=== PATIENT | male | born 1960 | race Caucasian/White ===

== ENCOUNTER 2020-12-03 07:34 | Outpatient (REF) | payer OTHER, SELFPAY ==
[2020-12-03 11:14] LABS: MANUAL DIFF FLAG NO
[2020-12-03 11:26] LABS: Basophils Percent Auto 0.4 % (0-2); Eosinophils Absolute Auto 0.3 X10*3/uL (0.0-0.4); Hematocrit 48.6 % (42-52); Imm Gran Abs Auto 0.02 X10*3/uL (0.00-0.03); Imm Gran Pct Auto 0.2 % (0.0-0.4); Immature Retic Fraction 9.2 % (2.3-13.4); Lymphocytes Absolute Auto 2.4 X10*3/uL (1.2-4.9); Lymphocytes Percent Auto 26.7 % (20-40); Mean Corpuscular Hemoglobin 31.3 pg (27.0-33.0); Mean Corpuscular Volume 89.5 fL (80-98); Mean Platelet Volume 10.8 fL (9.4-12.4); Monocytes Absolute Auto 0.7 X10*3/uL (0.1-1.2); Monocytes Percent Auto 7.3 % (2-11); Neutrophils Absolute Auto 5.6 X10*3/uL (2.0-8.3); Neutrophils Percent Auto 62.4 % (45-73); Platelet Count 213 X10*3/uL (160-400); Red Blood Count 5.43 X10*6/uL (4.60-5.80); Retic HGB Equivalent 35.8 pg (30.0-35.0); Reticulocyte Percent 2.8 % (0.5-1.8); Reticulocytes Absolute 0.154 X10*6/uL (0.026-0.095)
[2020-12-03 11:57] LABS: Alanine Aminotransferase 43 U/L (0-40); Albumin Level 4.7 g/dL (3.5-5.0); Alkaline Phosphatase 74 U/L (39-117); Anion Gap 15 (12-20); Aspartate Amino Transferase 36 U/L (5-37); Bilirubin Total 1.1 mg/dL (0.0-1.0); Blood Urea Nitrogen 15 mg/dL (9-16); Calcium 9.3 mg/dL (8.4-10.2); Carbon Dioxide 35 mmol/L (22-29); Chloride 95 mmol/L (96-108); Cholesterol 170 mg/dL; Estimated Glomerular Filt Rate > 60; Glucose Random 192 mg/dL (60-115); HDL Cholesterol 41 mg/dL; Iron 91 mcg/dL (45-160); LDL Cholesterol Calculated 75 mg/dl; Percent Iron Saturation 31 % (15-50); Potassium 3.5 mmol/L (3.3-5.1); Sodium 141 mmol/L (135-145); Total Iron Binding Capacity 290 mcg/dL (228-428); Total Protein 7.8 g/dL (6.5-8.0); Triglycerides 272 mg/dL; Unsaturated Iron Binding 199 ug/dL
[2020-12-03 12:04] LABS: Ferritin 319 ng/mL (20-250); Free T4 (Free Thyroxine) 1.07 ng/dL (0.71-1.85); Thyroid Stimulating Hormone 1.56 uIU/mL (0.32-4.0)
[2020-12-06 15:04] LABS: Folate 18.2 ng/mL (> or = 4.0); Vitamin B12 567 pg/mL (200-900)
== END 2020-12-03 07:35 | disposition home or self-care (01) ==
LOC: HO.HMGCLDS 07:34
PROVIDERS: PCP Internal Medicine; Visit Provider Internal Medicine
DX: I10 Essential (primary) hypertension (principal); E78.00 Pure hypercholesterolemia, unspecified; K21.9 Gastro-esophageal reflux disease without esophagitis; N40.1 Benign prostatic hyperplasia with lower urinary tract symptoms; R35.0 Frequency of micturition; Z12.5 Encounter for screening for malignant neoplasm of prostate
CPT/HCPCS: 36415; 80053; 80061; 82607; 82728; 82746; 83540; 84153; 84439; 84443; 84550; 85025; 85045

== ENCOUNTER 2022-01-27 07:27 | Day surgery (SDC) | payer OTHER, SELFPAY ==
--- NOTE | 2022-01-26 08:40 | P.CONAN_ITS ---
Documented by User: Olivia Charles NP 01/26/22 08:40 HPI - Anesthesia Eval Consult details Narrative: 61yo M for Colonoscopy with antibiotics [facility] Active Problems Active Problems: All Active Problems (Updated 01/24/22 @ 12:09 by Raisa Cerda, RN) Tubular adenoma of colon (Acute) GERD (gastroesophageal reflux disease) (Acute) BPH (benign prostatic hyperplasia) (Acute) Obesity (Acute) Hypercholesterolemia (Acute) Hypertension (Acute) Past Medical History Medical History (Updated 01/24/22 @ 12:09 by Raisa Cerda, RN) BPH (benign prostatic hyperplasia) Degenerative disc disease, cervical Erectile dysfunction GERD (gastroesophageal reflux disease) Gout Hearing loss in right ear Hip osteoarthritis Hypercholesterolemia Hypertension Mastoiditis Obesity On beta hope at home Family History Family History (Updated 09/17/20 @ 07:29 by Tyesha Valadez Ania) Father CVD (cardiovascular disease) Hypertension Mother No problems noted. Brother Lupus Sister Lupus Surgical History Surgical History (Updated 01/24/22 @ 12:00 by Raisa Cerda RN) H/O left knee surgery H/O total hip arthroplasty History of colonoscopy Social History Social History Advance Directives: No Advance Directives Information Provided: Yes Meds Allergies Allergy/AdvReac Type Severity Reaction Status Date / Time enalaprilat [From VASOTEC] Allergy Severe SWELLING Verified 01/24/22 12:00 Home Medications Medication Instructions Recorded Confirmed Last Taken Type cholecalciferol (vitamin D3) 25 25 mcg PO DAILY 11/26/20 01/24/22 Unknown History mcg (1,000 unit) capsule zuxidhcn-qlu-hvqwn acid 300 1 tab PO DAILY 11/26/20 01/24/22 Unknown History mcg-lycopene 600 mcg-lutein 300 mcg tablet (Centrum Silver Men) Exam Exam Date and Time: January 26, 2022 0840 Assessment and Plan Assessment Anesthesia Assessment: Chart Reviewed Documented by User: Tracee Oh MD 01/27/22 07:57 [facility] Past Medical History Medical History (Updated 01/24/22 @ 12:09 by Raisa Cerda RN) BPH (benign prostatic hyperplasia) Degenerative disc disease, cervical Erectile dysfunction GERD (gastroesophageal reflux disease) Gout Hearing loss in right ear Hip osteoarthritis Hypercholesterolemia Hypertension Mastoiditis Obesity On beta hope at home Family History Family History (Updated 09/17/20 @ 07:29 by Tyesha Valadez Ania) Father CVD (cardiovascular disease) Hypertension Mother No problems noted. Brother Lupus Sister Lupus Family history of problems with anesthesia: No Surgical History Surgical History (Updated 01/24/22 @ 12:00 by Raisa Cerda RN) H/O left knee surgery H/O total hip arthroplasty History of colonoscopy History of Problems with Anesthesia: No Social History Social History Advance Directives: No Advance Directives Information Provided: Yes Meds Allergies Allergy/AdvReac Type Severity Reaction Status Date / Time enalaprilat [From VASOTEC] Allergy Severe SWELLING Verified 01/24/22 12:00 Home Medications Medication Instructions Recorded Confirmed Last Taken Type cholecalciferol (vitamin D3) 25 25 mcg PO DAILY 11/26/20 01/24/22 Unknown History mcg (1,000 unit) capsule exqizwvs-xow-ppmuv acid 300 1 tab PO DAILY 11/26/20 01/24/22 Unknown History mcg-lycopene 600 mcg-lutein 300 mcg tablet (Centrum Silver Men) Exam Airway Mallampati Class: II (Cap front top left) TM Dist: >3cm Neck ROM: Full Heart: rrr Lungs: cta Assessment and Plan Assessment Anesthesia Assessment: Anesthesia Plan Discussed and Chart Reviewed Final Anesthetic Review Family History of Problems with Anesthesia: No History of Problems with Anesthesia: No NPO: Yes ASA Class: II Final Preanesthetic Review: No Changes in Pt Med Stat, Meds/Allgs Chart Reviewed and Consent Obtained/Reviewed Patient Risk: Intermediate Procedure Risk: Intermediate Anesthetic Plan Anesthetic Plan: MAC: Disposition: Standard PACU
[2022-01-27 08:12] VITALS: BP 125/73; PULSE 70; RESP 19; TEMP 36.5; O2SAT 96; BMI 35.5
[2022-01-27] MEDS: Lactated Ringers 1,000 ML 100 ML IVCONT (08:22)
[2022-01-27] MEDS: Ampicillin Sodium 2 GM in 0.9 % Sodium Chloride 100 ML IV (08:28)
[2022-01-27] MEDS: Gentamicin Sulfate/NaCl 80 MG/100 ML PIGGYBACK 100 MG IV (08:53)
[2022-01-27 10:31] VITALS: BP 95/60; PULSE 67; RESP 16; TEMP 36.5; O2SAT 93
--- NOTE | 2022-01-27 10:31 | PM.OP ---
Brief Operative Note Date of Service: 01/27/22 Pre-op diagnosis: Screening Post-op diagnosis: other (Colon polyps) Procedure: Colonoscopy to the cecum and TI with hot snare polypectomy x 2 Surgeon: Gus Lawson Anesthesia: MAC Was an Photographer Helper used for this Procedure?: No Estimated blood loss (mL): 0 Pathology: other (A. Transverse colon polyp B. Polyp at 50cm) Condition: stable Disposition: PACU
[2022-01-27 10:46] VITALS: BP 116/74; PULSE 66; RESP 18; TEMP 36.1; O2SAT 96
--- NOTE | 2022-01-27 11:44 | OP_ITS ---
SURGEON: Gus Lawson MD INDICATIONS: The patient presents for evaluation of colorectal cancer screening and personal history of tubular adenoma of the colon. Full consent was obtained from him for this, including risks of bleeding and perforation. PREOPERATIVE DIAGNOSIS: POSTOPERATIVE DIAGNOSIS: PROCEDURE PERFORMED: Colonoscopy to the cecum and terminal ileum with hot snare polypectomy. ESTIMATED BLOOD LOSS: COMPLICATIONS: ANESTHESIA: Monitored anesthesia care. ASSISTANTS: SPECIMENS: PREOPERATIVE DIAGNOSES: Personal history of tubular adenoma of the colon and colorectal cancer screening. POSTOPERATIVE DIAGNOSES: Personal history of tubular adenoma of the colon and colorectal cancer screening, colon polyps, diverticulosis, and internal hemorrhoids. DESCRIPTION OF PROCEDURE: The patient was placed in the left lateral decubitus position. The digital rectal exam revealed no abnormalities. The Olympus video pediatric colonoscope was entered into the rectum and advanced easily to the cecum. Once in the cecum, I did identify normal-appearing cecal pouch with appendiceal orifice and a normal-appearing ileocecal valve. The terminal ileum was cannulated and appeared normal. The scope was withdrawn back in the colon. The entire cecum and ileocecal valve appeared normal. The scope was slowly withdrawn assessing all mucosal surfaces carefully. Preparation was excellent. In the transverse colon was an approximately 10 mm polyp, which was removed with a hot snare polypectomy and recovered by suction. The polypectomy site appeared clean, without any sign of residual polyp nor bleeding. At 50 cm was an approximately 5 or 6 mm polyp, which was removed with a hot snare polypectomy and recovered by suction. The polypectomy site appeared clean, without any sign of residual polyp nor bleeding. I did not visualize any other polyps, colitis, or angiodysplasia. There was a mild amount of sigmoid diverticulosis. In the rectum, scope was retroflexed visualizing internal hemorrhoids, but no other pathology. The rectal mucosa appeared normal. The scope was straightened and withdrawn from the patient. He tolerated the procedure well and was returned to recovery area in stable condition. IMPRESSION: 1. Colon polyps, status post hot snare polypectomy x2. 2. Diverticulosis. 3. Internal hemorrhoids. PLAN: The results of the pathology will be checked. I would recommend a repeat colonoscopy in 5 years. He was advised not to use any aspirin and NSAIDs for 1 week. He did receive preprocedure antibiotics for prophylaxis in regard to a recent joint replacement and was given a prescription to use amoxicillin for later today. MD YURI Raman/ANAT / [id number]
== END 2022-01-27 11:17 | disposition home or self-care (01) ==
PROVIDERS: PCP Internal Medicine; Visit Provider Internal Medicine
PROC: 0DJD8ZZ Inspection of Lower Intestinal Tract, Via Natural or Artificial Opening Endoscopic (ICD-10-PCS; CPT 45378; principal; 2022-01-27 09:10)
DX: Z12.11 Encounter for screening for malignant neoplasm of colon (principal); Z86.010 Personal history of colon polyps; D12.3 Benign neoplasm of transverse colon; D12.5 Benign neoplasm of sigmoid colon; K57.30 Diverticulosis of large intestine without perforation or abscess without bleeding; K64.8 Other hemorrhoids; N40.0 Benign prostatic hyperplasia without lower urinary tract symptoms; M10.9 Gout, unspecified; I10 Essential (primary) hypertension; E78.5 Hyperlipidemia, unspecified; Z79.82 Long term (current) use of aspirin; Z79.899 Other long term (current) drug therapy
CPT/HCPCS: 45385; 88305; J0290; J1580

== ENCOUNTER 2022-02-06 12:16 | Outpatient (REF) | payer OTHER, SELFPAY ==
--- NOTE | ~2022-02-06 | XR_ITS ---
EXAMINATION: XR PELVIS CLINICAL INFORMATION: Pain in the hip COMPARISON: 09/01/2019 TECHNIQUE: AP view of the pelvis. FINDINGS: There is a total right hip arthroplasty. The femoral head component articulates appropriately with the acetabular component. No periprosthetic lucency or fracture. The left hip is well aligned. Moderate degenerative changes. There is narrowing of the joint space with osteophyte formation. The pelvic rim is intact. Normal bowel gas pattern. XR/XR pelvis 1-2V IMPRESSION: Total right hip arthroplasty without evidence of failure. Moderate degenerative changes of the left hip.
== END 2022-02-06 12:17 | disposition home or self-care (01) ==
LOC: HO.HOSX 12:16
PROVIDERS: Visit Provider Orthopaedic Surgery
DX: M16.12 Unilateral primary osteoarthritis, left hip (principal)
CPT/HCPCS: 72170

== ENCOUNTER 2022-04-19 06:35 | Outpatient (REF) | payer OTHER, SELFPAY ==
[2022-04-19 07:46] LABS: MANUAL DIFF FLAG NO
[2022-04-19 07:56] LABS: Basophils Percent Auto 0.5 % (0-2); Eosinophils Absolute Auto 0.3 X10*3/uL (0.0-0.4); Eosinophils Percent Auto 3.4 % (0-4); Hematocrit 44.1 % (42.0-52.0); Hemoglobin 15.7 g/dl (14.0-18.0); Imm Gran Abs Auto 0.01 X10*3/uL (0.00-0.03); Imm Gran Pct Auto 0.1 % (0.0-0.4); Lymphocytes Percent Auto 25.5 % (20-40); Mean Corpuscular HGB Conc 35.6 g/dl (31.0-36.0); Mean Corpuscular Hemoglobin 31.4 pg (27.0-33.0); Mean Corpuscular Volume 88.2 fL (80.0-98.0); Monocytes Absolute Auto 0.5 X10*3/uL (0.1-1.2); Monocytes Percent Auto 5.9 % (2-11); Neutrophils Absolute Auto 5.1 x10*3/uL (2.0-8.3); Neutrophils Percent Auto 64.6 % (45-73); Platelet Count 188 X10*3/uL (160-400); Red Cell Distribution Width 12.2 % (11.0-16.0)
[2022-04-19 08:19] LABS: Alanine Aminotransferase 28 U/L (0-40); Albumin Level 4.4 g/dL (3.5-5.0); Alkaline Phosphatase 68 U/L (39-117); Anion Gap 11 (12-20); Aspartate Amino Transferase 23 U/L (5-37); Bilirubin Total 0.8 mg/dL (0.0-1.0); Blood Urea Nitrogen 12 mg/dL (9-16); Calcium 9.5 mg/dL (8.4-10.2); Carbon Dioxide 29 mmol/L (22-29); Chloride 103 mmol/L (96-108); Cholesterol 161 mg/dL; Estimated Glomerular Filt Rate > 60; Glucose Random 163 mg/dL (60-115); HDL Cholesterol 44 mg/dL; LDL Cholesterol Calculated 87 mg/dl; Potassium 4.1 mmol/L (3.3-5.1); Sodium 139 mmol/L (135-145); Total Protein 7.6 g/dL (6.5-8.0); Triglycerides 152 mg/dL
[2022-04-19 08:42] LABS: Free T4 (Free Thyroxine) 1.11 ng/dL (0.71-1.85); Prostate Specific Antigen Scr 0.58 ng/mL (<0.05-4.0); Thyroid Stimulating Hormone 1.34 uIU/mL (0.32-4.0)
[2022-04-19 09:15] LABS: Folate 15.5 ng/mL (> or = 4.0); Vitamin B12 386 pg/mL (200-900)
== END 2022-04-19 06:36 | disposition home or self-care (01) ==
LOC: HO.HMGCLDS 06:35
PROVIDERS: Visit Provider Internal Medicine
DX: Z12.5 Encounter for screening for malignant neoplasm of prostate (principal); E78.00 Pure hypercholesterolemia, unspecified
CPT/HCPCS: 36415; 80053; 80061; 82607; 82746; 84153; 84439; 84443; 85025

== ENCOUNTER 2022-06-01 09:24 | Outpatient (REF) | payer OTHER, SELFPAY ==
--- NOTE | ~2022-06-01 | XR_ITS ---
EXAMINATION: XR HIP, LEFT CLINICAL INFORMATION: Pain left hip COMPARISON: Pelvic radiographs 02/06/2022 TECHNIQUE: Two views of the left hip. FINDINGS: No fracture or dislocation or destructive process. Normal bony mineralization. There are degenerative changes again noted left hip with joint narrowing and mild subchondral sclerosis and spurring acetabular rim and base femoral head. No visible erosive change. Soft tissue planes are unremarkable. The left SI joint and pubis are unremarkable. XR/XR hip LT min 2V IMPRESSION: Osteoarthritis left hip.
== END 2022-06-01 09:25 | disposition home or self-care (01) ==
LOC: HO.HOSX 09:24
PROVIDERS: Visit Provider Physician Assistant
DX: M25.552 Pain in left hip (principal)
CPT/HCPCS: 73502

== ENCOUNTER 2022-06-06 06:12 | Inpatient (IN) | payer OTHER, SELFPAY ==
--- NOTE | 2022-05-23 | ECG_ITS ---
Test Reason : PREOP Blood Pressure : / mmHG Vent. Rate : 064 BPM Atrial Rate : 064 BPM P-R Int : 186 ms QRS Dur : 086 ms QT Int : 416 ms P-R-T Axes : 053 016 043 degrees QTc Int : 429 ms Normal sinus rhythm Normal ECG When compared with ECG of 26-JUN-2019 10:55, No significant change was found Referred By: Samy Nuñez Electronically Signed By:Artem Tinoco
[2022-05-23 11:59] VITALS: BP 139/81; PULSE 68; RESP 20; O2SAT 97; BMI 35.1
--- NOTE | 2022-05-23 12:09 | HO.ANESPROP2 ---
Documented by User: Olivia Charles NP 06/05/22 09:06 HPI - Anesthesia Eval Consult details Narrative: 62yo M for Left Hip Total Replacement s/p Right Total Hip 2019 with GA-LMA 5 (went well per patient) PCP cleared [facility] Active Problems Active Problems: All Active Problems (Updated 04/21/22 @ 17:20 by Elia Davies MD) Tubular adenoma of colon (Acute) Arthritis of left hip (Acute) Annual physical exam (Acute) Elevated blood sugar (Acute) Type 2 diabetes mellitus with hyperglycemia (Acute) Tinea pedis (Acute) Plantar fasciitis (Acute) Impacted cerumen of both ears (Acute) GERD (gastroesophageal reflux disease) (Acute) BPH (benign prostatic hyperplasia) (Acute) Obesity (Acute) Hypercholesterolemia (Acute) Hypertension (Acute) Past Medical History Medical History BPH (benign prostatic hyperplasia) Degenerative disc disease, cervical Erectile dysfunction GERD (gastroesophageal reflux disease) Gout Hearing loss in right ear Hip osteoarthritis Hypercholesterolemia Hypertension Mastoiditis Obesity On beta hope at home Family History Family History Father CVD (cardiovascular disease) Hypertension Mother No problems noted. Brother Lupus Sister Lupus Family history of problems with anesthesia: No Surgical History Surgical History H/O left knee surgery H/O total hip arthroplasty History of colonoscopy History of Problems with Anesthesia: No Social History Social History Housing: House Are you a primary vision care associate to a significant other at home: No Do you presently have visiting nurse or other home services: No Alcohol intake: current Alcohol intake frequency: holidays/special occasions only Patient Tobacco Use Status: Never used Tobacco Years Smoked: quit 1986 e-Cigarette/Vaping Use: Never Used Second Hand Smoke Exposure: No Current occupational status: employed Cognitive needs: No Hearing needs: No Vision needs: Yes Narrative Narrative: No recent illness No CP/SOB with >4 mets at work Meds Allergies Allergy/AdvReac Type Severity Reaction Status Date / Time enalaprilat [From VASOTEC] Allergy Severe SWELLING Verified 06/01/22 09:10 Home Medications Medication Instructions Recorded Confirmed Last Taken Type cholecalciferol (vitamin D3) 25 25 mcg PO DAILY 11/26/20 05/26/22 Unknown History mcg (1,000 unit) capsule bfrwaipj-ope-hhnbk acid 300 1 tab PO DAILY 11/26/20 05/26/22 Unknown History mcg-lycopene 600 mcg-lutein 300 mcg tablet (Centrum Silver Men) Exam Exam Date and Time: May 23, 2022 1209 Height,Weight and Vital Signs: Height 5 ft 11 in Weight 114.305 kg Last Vital Signs Pulse 68 05/23/22 11:59 Resp 20 05/23/22 11:59 BP 139/81 05/23/22 11:59 Pulse Ox 97 05/23/22 11:59 O2 Del Method 05/23/22 11:59 Pertinent Lab Results Pertinent Lab Results: Lab Results 05/23/22 05/23/22 05/23/22 Range/Units 12:50 12:57 12:57 WBC 8.7 (4.8-10.8) X10*3/uL RBC 4.80 (4.60-5.80) X10*6/uL Hgb 15.0 (14.0-18.0) g/dl Hct 41.7 L (42.0-52.0) % MCV 86.9 (80.0-98.0) fL MCH 31.3 (27.0-33.0) pg MCHC 36.0 (31.0-36.0) g/dl RDW 11.9 (11.0-16.0) % Plt Count 215 (160-400) X10*3/uL MPV 10.2 (9.4-12.4) fL Immature Gran % (Auto) 0.3 (0.0-0.4) % Neut % (Auto) 65.4 (45-73) % Lymph % (Auto) 25.1 (20-40) % [place] % (Auto) 6.0 (2-11) % Eos % (Auto) 2.5 (0-4) % Baso % (Auto) 0.7 (0-2) % Lymph # (Auto) 2.2 (1.2-4.9) X10*3/uL [place] # (Auto) 0.5 (0.1-1.2) X10*3/uL Eos # (Auto) 0.2 (0.0-0.4) X10*3/uL Baso # (Auto) 0.1 (0.0-0.2) X10*3/uL Abs Immat Gran (auto) 0.03 (0.00-0.03) X10*3/uL Absolute Neuts (auto) 5.7 (2.0-8.3) x10*3/uL Absolute Nucleated RBC 0.000 (0.0-0.012) X10*3/uL Nucleated RBC % (auto) 0.0 (0.0-0.2) /100WBC PT (10.0-13.1) SEC INR (0.9-1.1) Sodium (135-145) mmol/L Potassium (3.3-5.1) mmol/L Chloride (96-108) mmol/L Carbon Dioxide (22-29) mmol/L Anion Gap (12-20) BUN (9-16) mg/dL Creatinine (0.5-1.4) mg/dL Estim Creat Clear Calc Estimated GFR Estimat Average Glucose 140 mg/dL Hemoglobin A1c % 6.5 % TSH (0.32-4.0) uIU/mL Nasal Screen MRSA (PCR) (Negative) Nasal S. aureus Screen (Negative) Nasal MRSA/S.aureus Interp Blood Type B Positive Antibody Screen NEGATIVE 05/23/22 05/23/22 05/26/22 Range/Units 12:57 Unknown 15:46 WBC (4.8-10.8) X10*3/uL RBC (4.60-5.80) X10*6/uL Hgb (14.0-18.0) g/dl Hct (42.0-52.0) % MCV (80.0-98.0) fL MCH (27.0-33.0) pg MCHC (31.0-36.0) g/dl RDW (11.0-16.0) % Plt Count (160-400) X10*3/uL MPV (9.4-12.4) fL Immature Gran % (Auto) (0.0-0.4) % Neut % (Auto) (45-73) % Lymph % (Auto) (20-40) % [place] % (Auto) (2-11) % Eos % (Auto) (0-4) % Baso % (Auto) (0-2) % Lymph # (Auto) (1.2-4.9) X10*3/uL [place] # (Auto) (0.1-1.2) X10*3/uL Eos # (Auto) (0.0-0.4) X10*3/uL Baso # (Auto) (0.0-0.2) X10*3/uL Abs Immat Gran (auto) (0.00-0.03) X10*3/uL Absolute Neuts (auto) (2.0-8.3) x10*3/uL Absolute Nucleated RBC (0.0-0.012) X10*3/uL Nucleated RBC % (auto) (0.0-0.2) /100WBC PT 13.2 H (10.0-13.1) SEC INR 1.1 (0.9-1.1) Sodium 138 (135-145) mmol/L Potassium 3.7 (3.3-5.1) mmol/L Chloride 101 (96-108) mmol/L Carbon Dioxide 29 (22-29) mmol/L Anion Gap 12 (12-20) BUN 16 (9-16) mg/dL Creatinine 1.16 (0.5-1.4) mg/dL Estim Creat Clear Calc 83.8 Estimated GFR > 60 Estimat Average Glucose mg/dL Hemoglobin A1c % % TSH (0.32-4.0) uIU/mL Nasal Screen MRSA (PCR) NEGATIVE (Negative) Nasal S. aureus Screen NEGATIVE (Negative) Nasal MRSA/S.aureus Interp SEE NOTE Blood Type Antibody Screen 05/26/22 Range/Units 15:46 WBC (4.8-10.8) X10*3/uL RBC (4.60-5.80) X10*6/uL Hgb (14.0-18.0) g/dl Hct (42.0-52.0) % MCV (80.0-98.0) fL MCH (27.0-33.0) pg MCHC (31.0-36.0) g/dl RDW (11.0-16.0) % Plt Count (160-400) X10*3/uL MPV (9.4-12.4) fL Immature Gran % (Auto) (0.0-0.4) % Neut % (Auto) (45-73) % Lymph % (Auto) (20-40) % [place] % (Auto) (2-11) % Eos % (Auto) (0-4) % Baso % (Auto) (0-2) % Lymph # (Auto) (1.2-4.9) X10*3/uL [place] # (Auto) (0.1-1.2) X10*3/uL Eos # (Auto) (0.0-0.4) X10*3/uL Baso # (Auto) (0.0-0.2) X10*3/uL Abs Immat Gran (auto) (0.00-0.03) X10*3/uL Absolute Neuts (auto) (2.0-8.3) x10*3/uL Absolute Nucleated RBC (0.0-0.012) X10*3/uL Nucleated RBC % (auto) (0.0-0.2) /100WBC PT (10.0-13.1) SEC INR (0.9-1.1) Sodium (135-145) mmol/L Potassium (3.3-5.1) mmol/L Chloride (96-108) mmol/L Carbon Dioxide (22-29) mmol/L Anion Gap (12-20) BUN (9-16) mg/dL Creatinine (0.5-1.4) mg/dL Estim Creat Clear Calc Estimated GFR Estimat Average Glucose mg/dL Hemoglobin A1c % % TSH 1.96 (0.32-4.0) uIU/mL Nasal Screen MRSA (PCR) (Negative) Nasal S. aureus Screen (Negative) Nasal MRSA/S.aureus Interp Blood Type Antibody Screen Narrative Narrative: EKG 05/2022 Vent. Rate : 064 BPM ? ? Atrial Rate : 064 BPM ?? P-R Int : 186 ms? QRS Dur : 086 ms ? ? QT Int : 416 ms ? ? ? P-R-T Axes : 053 016 043 degrees ?? QTc Int : 429 ms ? Normal sinus rhythm Normal ECG When compared with ECG of 26-JUN-2019 10:55, No significant change was found Airway Mallampati Class: II TM Dist: >3cm Neck ROM: Full Loose/Missing/Broken Teeth: Yes (#9 capped, left lower perm bridge) Heart: RRR Lungs: CTAB Assessment and Plan Assessment Anesthesia Assessment: Anesthesia Plan Discussed and PAT Visit Final Anesthetic Review Family History of Problems with Anesthesia: No History of Problems with Anesthesia: No Documented by User: Daren Santana MD 06/06/22 13:58 [facility] Past Medical History Medical History BPH (benign prostatic hyperplasia) Degenerative disc disease, cervical Erectile dysfunction GERD (gastroesophageal reflux disease) Gout Hearing loss in right ear Hip osteoarthritis Hypercholesterolemia Hypertension Mastoiditis Obesity On beta hope at home Family History Family History Father CVD (cardiovascular disease) Hypertension Mother No problems noted. Brother Lupus Sister Lupus Surgical History Surgical History H/O left knee surgery H/O total hip arthroplasty History of colonoscopy Social History Social History Housing: House Are you a primary vision care associate to a significant other at home: No Do you presently have visiting nurse or other home services: No Alcohol intake: current Alcohol intake frequency: holidays/special occasions only Patient Tobacco Use Status: Never used Tobacco Years Smoked: quit 1986 e-Cigarette/Vaping Use: Never Used Second Hand Smoke Exposure: No Current occupational status: employed Cognitive needs: No Hearing needs: No Vision needs: Yes Meds Allergies Allergy/AdvReac Type Severity Reaction Status Date / Time enalaprilat [From VASOTEC] Allergy Severe SWELLING Verified 06/01/22 09:10 Home Medications Medication Instructions Recorded Confirmed Last Taken Type cholecalciferol (vitamin D3) 25 25 mcg PO DAILY 11/26/20 05/26/22 Unknown History mcg (1,000 unit) capsule hufceaub-qyv-qabmf acid 300 1 tab PO DAILY 11/26/20 05/26/22 Unknown History mcg-lycopene 600 mcg-lutein 300 mcg tablet (Centrum Silver Men) Exam Airway Loose/Missing/Broken Teeth: Yes (Poor dentition globally , crown ,chipped teeth ) Assessment and Plan Assessment Anesthesia Assessment: Chart Reviewed Final Anesthetic Review NPO: Yes ASA Class: II Final Preanesthetic Review: Meds/Allgs Chart Reviewed, Consent Obtained/Reviewed and Anes Risks/Benef Reviewed Patient Risk: Intermediate Procedure Risk: Intermediate Anesthetic Plan Anesthetic Plan: GA Disposition: Inp. Admit - Standard Bed
[2022-05-23 12:59] LABS: MANUAL DIFF FLAG NO
[2022-05-23 13:17] LABS: Basophils Absolute Auto 0.1 X10*3/uL (0.0-0.2); Basophils Percent Auto 0.7 % (0-2); Eosinophils Absolute Auto 0.2 X10*3/uL (0.0-0.4); Eosinophils Percent Auto 2.5 % (0-4); Hematocrit 41.7 % (42.0-52.0); Imm Gran Abs Auto 0.03 X10*3/uL (0.00-0.03); Imm Gran Pct Auto 0.3 % (0.0-0.4); Lymphocytes Absolute Auto 2.2 X10*3/uL (1.2-4.9); Lymphocytes Percent Auto 25.1 % (20-40); Mean Corpuscular Hemoglobin 31.3 pg (27.0-33.0); Mean Corpuscular Volume 86.9 fL (80.0-98.0); Mean Platelet Volume 10.2 fL (9.4-12.4); Monocytes Absolute Auto 0.5 X10*3/uL (0.1-1.2); Neutrophils Absolute Auto 5.7 x10*3/uL (2.0-8.3); Neutrophils Percent Auto 65.4 % (45-73); Platelet Count 215 X10*3/uL (160-400); Red Cell Distribution Width 11.9 % (11.0-16.0); White Blood Count 8.7 X10*3/uL (4.8-10.8)
[2022-05-23 13:25] LABS: Estimated Average Glucose 140 mg/dL; Hemoglobin A1c % 6.5 %
[2022-05-23 13:32] LABS: Anion Gap 12 (12-20); Blood Urea Nitrogen 16 mg/dL (9-16); Carbon Dioxide 29 mmol/L (22-29); Chloride 101 mmol/L (96-108); Creatinine Clr Calc Pharmacy 83.8; Estimated Glomerular Filt Rate > 60; Potassium 3.7 mmol/L (3.3-5.1); Sodium 138 mmol/L (135-145)
[2022-05-23 15:50] LABS: MRSA Nasal PCR NEGATIVE (Negative); SA Nasal PCR NEGATIVE (Negative)
[2022-05-26 16:47] LABS: INTERNATIONAL NORM RATIO 1.1 (0.9-1.1); Prothrombin Time 13.2 SEC (10.0-13.1)
[2022-05-26 17:30] LABS: TSH reflex Free T4 1.96 uIU/mL (0.32-4.0)
[2022-06-06] VITALS (15 sets, daily range): BP systolic 102–141; BP diastolic 52–81; PULSE 64–78; RESP 14–20; TEMP 36.3–37.5; O2SAT 92–97
--- NOTE | ~2022-06-06 | XR_ITS ---
EXAMINATION: XR PELVIS CLINICAL INFORMATION: Post hip replacement COMPARISON: Previous x-ray May 2022 TECHNIQUE: AP view of the pelvis. FINDINGS: There is a new left hip replacement in satisfactory position. No fracture or dislocation is seen. There is a right hip replacement in satisfactory position. There are postoperative changes to the soft tissues. XR/XR pelvis 1-2V IMPRESSION: Satisfactory appearance of left hip replacement.
[2022-06-06] MEDS: oxyCODONE HCl ER 10 MG TAB.ER.12H PO ×2 (06:34→20:08)
[2022-06-06 06:50] LABS: Glucose, Whole Blood 185 mg/dL (60-115)
[2022-06-06 06:56] LABS: COVID-19 Test Negative (Negative); IDNOW Serial# 16C4AD1C
[2022-06-06] MEDS: Lactated Ringers 1,000 ML 100 ML IVCONT ×3 (07:01→20:18)
--- NOTE | 2022-06-06 07:03 | PHA.MEDREC ---
Pharmacy Consult ? Medication Reconciliation Pharmacy has reviewed the medication reconciliation completed by nursing. Whit Aguilar, DaliaD
[2022-06-06] MEDS: ceFAZolin Sodium/Dextrose,Iso 2 GM/50 ML PIGGYBACK IV ×2 (07:34→13:31)
--- NOTE | 2022-06-06 09:41 | PM.OP ---
Brief Operative Note Date of Service: 06/06/22 Pre-op diagnosis: Left hip OA Post-op diagnosis: same Procedure: Left hip OA Implants: Demetria Trident2 56/20 liner Demetria Accolade2#5 127 deg with -2.5 36 ceramic femoral head Surgeon: Tadeo Foy MD Anesthesia: GETA and local Was an Park Maintenance Technician used for this Procedure?: Yes Park Maintenance Technician: Samy Nuñez Estimated blood loss (mL): 200 IV fluids (mL): 1,000 Pathology: other Condition: stable Disposition: PACU
--- NOTE | 2022-06-06 09:47 | W.PM.OPN ---
Operative Note Operative Note Date of Service: 06/06/22 Narrative: Date of Service: 06/06/22 Pre-op diagnosis: Left hip OA Post-op diagnosis: same Procedure: Left hip OA Implants: Taylor Trident2 56/20 liner Demetria Accolade2#5 127 deg with -2.5 36 ceramic femoral head Surgeon: Tadeo Foy MD Anesthesia: GETA and local Was an Photoengraving Etcher used for this Procedure?: Yes Photoengraving Etcher: Samy Nuñez Estimated blood loss (mL): 200 IV fluids (mL): 1,000 Pathology: other Condition: stable Disposition: PACU Procedure in detail: Patient was brought into the operating room and placed in the right lateral decubitus position. All bony prominences were well padded and the limb was prepped and draped in standard sterile fashion. Time-out was called to identify proper site procedure proper surgeon IV antibiotics and 1 g of transaxemic acid were administered. I began by making a curvilinear incision over the posterolateral aspect of the greater trochanter. Dissection was taken down to the tensor fascia which was incised in line with the incision and a Charnley retractor was placed. Cautery was used to maintain hemostasis. A werewolf device was also used. The hip was internally rotated and the external rotators were identified. The vessels were cauterized and a full-thickness capsular/external rotator layer was developed starting just proximal to the piriformis. This layer was tagged and a dull Hohmann retractor was placed underneath the neck in the hip was dislocated. . A neck cut was made 1 cm proximal to the lesser trochanter and the head and neck were removed. The head was eburnated. It measured a 52mm on the back table. I started with a 44mm and sequentially reamed up to a size 56 and impacted a 56mm at approximately 45 degrees of inclination and 25 degrees of version. I then placed a lipped liner and turned my attention to the femur. I identified the piriformis insertion and used this as a starting point for my stephanieie cutter. The medius tendon was protected with a Hibs retractor. I then used a Charnley awl to identify the canal and a curved curette to remove the lateral bone. I irrigated copiously. I then sequentially broached in the patient's natural version to a size 6 and placed my trial implants. Using a trail head I took the hip through range of motion. I was very satisfied with the stability and length. Therefore I removed all instrumentation and copiously irrigated. I placed my final femoral implantand again took the hip through range of motion and was satisfied with the stability and length. I was satisfied with a -2. This was impacted in place. I then irrigated for 3 minutes with iodine and placed 1 g of local tranaxemic acid. I then performed a capsular closure with 2.0 fiberwire, Sabino's fascia with 0 Vicryl, subcuticular with 2-0 Vicryl and the skin with daniel. Patient was placed into a sterile dressing. Radiographs were obtained at the completion of the case and I was satisfied with the component position. Patient was extubated brought to the recovery room in stable condition.
--- NOTE | 2022-06-06 10:29 | PHA.MEDREC ---
Pharmacy Consult ? Medication Reconciliation Pharmacy has reviewed the medication reconciliation done by
--- NOTE | 2022-06-06 16:53 | P.CONHOSP_ITS ---
History of Present Illness Data of Consult Service Date: 06/06/22 Primary Care Provider: Elia Davies MD HPI 62-year-old man admitted to Orthopedic surgery and is status post total hip arthroplasty. Surgery was unremarkable. He denies any chest pain, shortness of breath, nausea, vomiting, diarrhea. He is currently resting in bed comfortably. Review of Systems Review of Systems: Denies any recent fever chills or decrease in appetite respiratory denies any shortness of breath coverage production cardiovascular see HPI gastrointestinal denies any dysphagia abdominal pain nausea vomiting or diarrhea genitourinary denies any dysuria frequency or hematuria musculoskeletal see HPI neuropsych denies any weakness or seizures all other systems reviewed are negative [facility] Medical History BPH (benign prostatic hyperplasia) Degenerative disc disease, cervical Erectile dysfunction GERD (gastroesophageal reflux disease) Gout Hearing loss in right ear Hip osteoarthritis Hypercholesterolemia Hypertension Mastoiditis Obesity On beta hope at home Family History Father CVD (cardiovascular disease) Hypertension Mother No problems noted. Brother Lupus Sister Lupus Surgical History H/O left knee surgery H/O total hip arthroplasty History of colonoscopy Social History Housing: House Are you a primary care associate to a significant other at home: No Do you presently have visiting nurse or other home services: No Alcohol intake: current Alcohol intake frequency: holidays/special occasions only Patient Tobacco Use Status: Never used Tobacco Years Smoked: quit 1986 e-Cigarette/Vaping Use: Never Used Second Hand Smoke Exposure: No Current occupational status: employed Cognitive needs: No Hearing needs: No Vision needs: Yes Meds Allergies Allergy/AdvReac Type Severity Reaction Status Date / Time enalaprilat [From VASOTEC] Allergy Severe SWELLING Verified 06/01/22 09:10 Active Medications: Current Medications Acetaminophen (Acetaminophen 325 Mg Tablet) 650 mg PO Q6H PRN PRN Reason: Pain, Mild (Pain Scale 1-3) Aspirin (Aspirin 325 Mg Tablet) 325 mg PO BID CAIT Celecoxib (Celecoxib 200 Mg Capsule) 200 mg PO BID CAIT Docusate Sodium (Docusate Sodium 100 Mg Capsule) 100 mg PO BID [facility] Fentanyl (Fentanyl Citrate/Pf 100 Mcg/2 Ml Vial) 25 mcg IVPUSH Q5M PRN; Protocol PRN Reason: Pain, Moderate (Pain Scale 4-6 Hydromorphone HCl (Hydromorphone Hcl 0.5 Mg/0.5 Ml Syringe) 0.25 mg IVPUSH Q5M PRN; Protocol PRN Reason: Pain, Severe (Pain Scale 7-10) Hydromorphone HCl (Hydromorphone Hcl 0.5 Mg/0.5 Ml Syringe) 0.25 mg IVPUSH Q4H PRN; Protocol PRN Reason: Pain, Severe (Pain Scale 7-10) Promethazine HCl 6.25 mg/ (Sodium Chloride) 50.25 mls @ 201 mls/hr IV ONCE PRN PRN Reason: Nausea and Vomiting Lactated Ringer's (Lr) 1,000 mls @ 100 mls/hr IVCONT .Q10H [facility] Last Admin: 06/06/22 11:28 Dose: 100 mls/hr Metoprolol Succinate (Metoprolol Succinate Er 100 Mg Tab.Er.24h) 100 mg PO DAILY [facility]; Protocol Ondansetron HCl (Ondansetron Hcl 4 Mg/2 Ml Vial) 4 mg IVPUSH Q8H PRN PRN Reason: Nausea and Vomiting Oxycodone HCl (Oxycodone Hcl Immed Release 5 Mg Tablet) 10 mg PO Q4H PRN PRN Reason: Pain, Moderate (Pain Scale 4-6 Oxycodone HCl (Oxycodone Hcl Er 10 Mg Tab.Er.12h) 10 mg PO BID [facility] Sodium Chloride (0.9 % Sodium Chloride Flush 3 Ml Syringe) 3 ml IVFLUSH QSHIFT [facility] Last Admin: 06/06/22 15:40 Dose: Not Given Home Medications Medication Instructions Recorded Confirmed Last Taken Type cholecalciferol (vitamin D3) 25 25 mcg PO DAILY 11/26/20 05/26/22 Unknown History mcg (1,000 unit) capsule ygpozhpy-mnf-zlvrf acid 300 1 tab PO DAILY 11/26/20 05/26/22 Unknown History mcg-lycopene 600 mcg-lutein 300 mcg tablet (Centrum Silver Men) Physical Exam Vital Signs and Narrative: Vital Signs: Last Vital Signs Temp 98.4 F 06/06/22 15:32 Pulse 75 06/06/22 15:32 Resp 18 06/06/22 15:32 BP 108/61 06/06/22 15:32 Pulse Ox 94 06/06/22 15:32 O2 Del Method 06/06/22 15:32 O2 Flow Rate 2 06/06/22 15:32 BMI result Body Mass Index 35.1 Appearing in no acute distress head is normocephalic atraumatic eyes pupils are PERRLA sclera is anicteric mouth throat mucous membranes are intact and moist neck is supple no lymphadenopathy, no JVD noted lung sounds are clear to auscultation heart regular rate rhythm, clear S1, S2 positive bowel sounds, abdomen is soft, nontender neuro patient is alert x3, no focal deficits Left hip surgical dressing intact, surgical incision not visualized Results Labs CBC and Chem 7: 05/23/22 12:57 05/23/22 12:57 Labs: Laboratory Results - last 24 hr 06/06/22 06/06/22 06:16 06:45 POC Glucose 185 H COVID-19 ([facility]) Negative COVID-19 Clin Com See Note Imaging Radiologist's Impressions: Impressions Pelvis X-Ray 06/06/22 09:43 IMPRESSION: Satisfactory appearance of left hip replacement. Assessment and Plan (1) Osteoarthritis of left hip: Status: Acute Plan 62-year-old man status post left total hip arthroplasty Left total hip arthroplasty Management as per surgical team Pain management Diabetes mellitus Sliding scale, ADA diet Hypertension On amlodipine at home, hold for now as patient is postoperative Restart as blood pressure allows Will continue the metoprolol Obesity. BMI 35.1 Discussed importance of weight management as this may be contributing to worsening of other comorbidities DVT prophylaxis with full-dose aspirin Attending Dr. Linder Full code Medical consultation complete, will sign off
[2022-06-06] MEDS: Celecoxib 200 MG CAPSULE PO (20:07)
[2022-06-06] MEDS: Docusate Sodium 100 MG CAPSULE PO (20:07)
[2022-06-07 03:00] VITALS: BP 135/59; PULSE 84; RESP 17; TEMP 37; O2SAT 95
[2022-06-07] MEDS: Lactated Ringers 1,000 ML 100 ML IVCONT ×2 (05:53→15:28)
[2022-06-07] MEDS: HYDROmorphone HCl 0.5 MG/0.5 ML SYRINGE 0.25 MG IVPUSH (05:53)
[2022-06-07 06:18] LABS: MANUAL DIFF FLAG NO
[2022-06-07 06:21] LABS: Basophils Percent Auto 0.2 % (0-2); Eosinophils Percent Auto 0.1 % (0-4); Hematocrit 35.8 % (42.0-52.0); Hemoglobin 12.9 g/dl (14.0-18.0); Imm Gran Abs Auto 0.07 X10*3/uL (0.00-0.03); Imm Gran Pct Auto 0.6 % (0.0-0.4); Lymphocytes Absolute Auto 1.8 X10*3/uL (1.2-4.9); Lymphocytes Percent Auto 14.2 % (20-40); Mean Corpuscular Hemoglobin 31.2 pg (27.0-33.0); Mean Corpuscular Volume 86.5 fL (80.0-98.0); Mean Platelet Volume 10.6 fL (9.4-12.4); Monocytes Absolute Auto 1.3 X10*3/uL (0.1-1.2); Monocytes Percent Auto 10.2 % (2-11); Neutrophils Absolute Auto 9.5 x10*3/uL (2.0-8.3); Neutrophils Percent Auto 74.7 % (45-73); Platelet Count 171 X10*3/uL (160-400); Red Blood Count 4.14 X10*6/uL (4.60-5.80); Red Cell Distribution Width 11.9 % (11.0-16.0); White Blood Count 12.7 X10*3/uL (4.8-10.8)
[2022-06-07 06:34] LABS: Anion Gap 13 (12-20); Blood Urea Nitrogen 16 mg/dL (9-16); Calcium 8.6 mg/dL (8.4-10.2); Carbon Dioxide 35 mmol/L (22-29); Chloride 95 mmol/L (96-108); Creatinine Clr Calc Pharmacy 89.1; Estimated Glomerular Filt Rate > 60; Glucose Fasting 158 mg/dL (60-99); Potassium 3.3 mmol/L (3.3-5.1); Sodium 140 mmol/L (135-145)
[2022-06-07 07:13] VITALS: BP 128/64; PULSE 72; RESP 19; TEMP 37.5; O2SAT 93
[2022-06-07 07:25] LABS: Glucose, Whole Blood 160 mg/dL (60-115)
--- NOTE | 2022-06-07 07:37 | PM.PNORT ---
Subjective Subjective Date of Service: 06/07/22 Interval history: POD1 s/p LTHA Patient is resting comfortably in bed. No overnight events. Pain is well managed. No additional complaints. Physical Exam Vital Signs: Vital Signs: Last Vital Signs Temp 99.5 F 06/07/22 07:13 Pulse 72 06/07/22 07:13 Resp 19 06/07/22 07:13 BP 128/64 06/07/22 07:13 Pulse Ox 93 06/07/22 07:13 O2 Del Method 06/07/22 07:13 O2 Flow Rate 1 06/07/22 07:13 BMI result Body Mass Index 35.1 Const: General: cooperative, healthy appearing and no acute distress Resp: Effort & Inspection: normal respiratory effort and able to speak in complete sentences Cardio: Rate: regular rate Peripheral pulses: Peripheral pulses 2+ throughout GI: Palpation (GI): Soft to palpation Skin: Lesions: no lesions Rashes: no rashes Extrem: Other: Left hip Aquacel is clean dry and intact. Patient is able dorsiflex and plantar flex. Sensation intact. Pedal pulse intact. Procedures Date of Service Date of Service: 06/07/22 Progress Note: A&P Assessment and plan (1) Status post total replacement of left hip: Status: Acute Assessment and Plan: Continue pain mgmnt Begin ASA for dvt ppx begin PT for LTHA Dispo planning-Pending PT eval, pain mgmnt Time Spent With Patient Time: Total time spent is greater than 50% in coordination of care (as documented) at patient's floor/unit and/or counseling patient: Quality Stroke Does the patient have a stroke diagnosis?: No VTE Prior VTE?: No VTE Risk Level:: Medical - moderate - high VTE Device Contraindication: N/A - Device Ordered VTE Drug Contraindication: N/A - Med Ordered
[2022-06-07] MEDS: Doxazosin Mesylate 2 MG TABLET 4 MG PO (09:08)
[2022-06-07] MEDS: oxyCODONE HCl ER 10 MG TAB.ER.12H PO (09:09)
[2022-06-07] MEDS: Aspirin 325 MG TABLET PO (09:09)
[2022-06-07] MEDS: Metoprolol Succinate ER 100 MG TAB.ER.24H PO (09:09)
[2022-06-07] MEDS: allopurinoL 100 MG TABLET PO (09:10)
[2022-06-07] MEDS: Tamsulosin HCL 0.4 MG CAPSULE PO (09:10)
[2022-06-07] MEDS: Docusate Sodium 100 MG CAPSULE PO (09:10)
[2022-06-07] MEDS: Miconazole Nitrate 2% Powder 85 GM Bottle 1 APPL TOPICAL (09:10)
[2022-06-07] MEDS: 0.9 % Sodium Chloride Flush 3 ML SYRINGE IVFLUSH (09:10)
[2022-06-07] MEDS: Celecoxib 200 MG CAPSULE PO (09:10)
[2022-06-07] MEDS: Triamcinolone Acet 0.5 % Cream 15 GM TUBE 1 APPL TOPICAL (09:10)
[2022-06-07] MEDS: hydroCHLOROthiazide 50 MG TABLET PO (09:10)
--- NOTE | 2022-06-07 09:32 | MHC.CM.PN ---
EMR REVIEWED, PT ADMITTED S/P L Migel JOHNSON MET W/PT WHO REPORTS HE WOULD LIKE TO GO HOME W/SERVICES UPON D/C, PT REPORTS HAVING A WHEELED WALKER, HOME MODS AND EVERYTHING I NEED AND PT DECLINES CURRENT HOME SERVICES, PT PREFERS [facility] HE HAD THEM FOR LAST ORTHO PROCEDURE, PT VERIFIES PCP ELSA PO, PFIZER X4 AND PT WOULD LIKE TO COMPLETE A HCP W/CM PRIOR TO D/C. D/C HOME TODAY W/[facility], [facility] FOR ANTICOAG, [facility] FOR TRANSPORT
[2022-06-07 09:58] VITALS: O2SAT 92
[2022-06-07 11:00] VITALS: BP 114/60; PULSE 77; RESP 18; TEMP 36.9; O2SAT 93
[2022-06-07 11:16] LABS: Glucose, Whole Blood 279 mg/dL (60-115)
--- NOTE | 2022-06-07 14:38 | HO.POSTANES ---
Post Anesthesia Evaluation Post Anesthesia Evaluation Vital Signs: Vital Signs Temp Pulse Resp BP Pulse Ox O2 Del Method O2 Flow Rate 06/07/22 11:00 98.5 F 77 18 114/60 93 Room Air 06/07/22 09:58 92 Room Air 06/07/22 07:13 99.5 F 72 19 128/64 93 Nasal Cannula 1 06/07/22 03:00 98.6 F 84 17 135/59 L 95 Room Air Anesthesia: General Mental Status: Awake Pain Control: Satisfactory Nausea/Vomiting: None Hydration: Adequate Anesthesia-Related Issues: No Anes. Related Issues
[2022-06-07 15:00] VITALS: BP 113/65; PULSE 68; RESP 18; TEMP 36.7; O2SAT 96
[2022-06-07 15:56] LABS: Glucose, Whole Blood 187 mg/dL (60-115)
--- NOTE | 2022-06-07 16:21 | PM.DS ---
DS: Providers Provider Date of Service: 06/07/22 Date of admission: 06/06/22 06:12 Primary care physician: Elia Davies MD Consults: 06/06/22 13:56 Consult to Hospitalist Routine Consulting Provider: Hospitalist Reason For Exam: diabetes DS: Diagnosis Discharge Diagnosis (1) Status post total replacement of left hip: Status: Acute DS: Summary Hospital Course Hospital Course: The patient underwent a successful left total hip arthroplasty, they were transferred to PACU and then to the floor to recover. During their stay, their vitals were stable, afebrile at 98.0. Labs were unremarkable, H/H 12.9-35.8. POD 1 they were started on Aspirin 325mg po bid for DVT ppx, they also received Physical Therapy services twice a day. Prior to discharge, their dressing was changed, incision clean dry and intact, new Aquacel dressing applied and the plan was to be discharged home with VNA services. Time Spent with Patient Time attestation: Total time spent providing and/or coordinating discharge services: Discharge coordination time: Less than 30 minutes Quality: Safe Use of Opioids Does Pt have an Active Cancer Diagnosis on the Problem List?: No Quality: Stroke Does the patient have a stroke diagnosis?: No Physical Exam Vital Signs: Vital Signs: Last Vital Signs Temp 98.0 F 06/07/22 15:00 Pulse 68 06/07/22 15:00 Resp 18 06/07/22 15:00 BP 113/65 06/07/22 15:00 Pulse Ox 96 06/07/22 15:00 O2 Del Method 06/07/22 15:00 O2 Flow Rate 1 06/07/22 07:13 BMI result Body Mass Index 35.1 Const: General: cooperative, healthy appearing and no acute distress Resp: Effort & Inspection: normal respiratory effort and able to speak in complete sentences Cardio: Rate: regular rate Peripheral pulses: Peripheral pulses 2+ throughout GI: Palpation (GI): Soft to palpation Skin: Lesions: no lesions Rashes: no rashes Extrem: Other: Left hip Aquacel is clean dry and intact. Patient is able dorsiflex and plantar flex. Sensation intact. Pedal pulse intact. DS: Data Data Completed and Pending Pending studies at discharge: Pending at discharge 06/06/22 09:13 Surgical [PTH] Routine Labs on day of discharge: Laboratory Results - last 24 hr 06/07/22 06/07/22 06/07/22 05:30 05:30 07:10 WBC 12.7 H RBC 4.14 L Hgb 12.9 L Hct 35.8 L MCV 86.5 MCH 31.2 MCHC 36.0 RDW 11.9 Plt Count 171 MPV 10.6 Immature Gran % (Auto) 0.6 H Neut % (Auto) 74.7 H Lymph % (Auto) 14.2 L [place] % (Auto) 10.2 Eos % (Auto) 0.1 Baso % (Auto) 0.2 Lymph # (Auto) 1.8 [place] # (Auto) 1.3 H Eos # (Auto) 0.0 Baso # (Auto) 0.0 Abs Immat Gran (auto) 0.07 H Absolute Neuts (auto) 9.5 H Absolute Nucleated RBC 0.000 Nucleated RBC % (auto) 0.0 Sodium 140 Potassium 3.3 Chloride 95 L Carbon Dioxide 35 H Anion Gap 13 BUN 16 Creatinine 1.09 Estim Creat Clear Calc 89.1 Estimated GFR > 60 POC Glucose 160 H Fasting Glucose 158 H Calcium 8.6 D 06/07/22 06/07/22 11:09 15:41 WBC RBC Hgb Hct MCV MCH MCHC RDW Plt Count MPV Immature Gran % (Auto) Neut % (Auto) Lymph % (Auto) [place] % (Auto) Eos % (Auto) Baso % (Auto) Lymph # (Auto) [place] # (Auto) Eos # (Auto) Baso # (Auto) Abs Immat Gran (auto) Absolute Neuts (auto) Absolute Nucleated RBC Nucleated RBC % (auto) Sodium Potassium Chloride Carbon Dioxide Anion Gap BUN Creatinine Estim Creat Clear Calc Estimated GFR POC Glucose 279 H 187 H Fasting Glucose Calcium Discharge Plan Discharge Patient Disposition: Home Health Service Discharge Diagnosis: s/p LTHA Referrals: Rangel MORRIS [Outside] - 1 Day (HOME PHYSICAL THERAPY) Samy Nuñez PA-C [Physician Art Gallery Director] - 1 Week (06/22/22 at 11:30am) Discharge Medications: New acetaminophen 325 mg Tablet 650 mg PO Q6H PRN (Reason: Pain, Mild (Pain Scale 1-3)) 30 Days Qty: 240 0RF aspirin 325 mg Tablet 325 mg PO BID 42 Days Qty: 84 0RF celecoxib 200 mg Capsule 200 mg PO BID 30 Days Qty: 60 0RF oxycodone 10 mg tablet 10 mg PO Q4H PRN (Reason: Pain, Moderate (Pain Scale 4-6) 7 Days Qty: 42 0RF Rx Instructions: Partial Fill upon patient request. docusate sodium 100 mg Capsule 100 mg PO BID 30 Days Qty: 60 0RF Continued triamcinolone acetonide 0.5 % cream 1 appl topical BID 14 Days Qty: 15 0RF oxybutynin chloride 5 mg tablet 5 mg PO DAILY 90 Days Qty: 90 2RF doxazosin 4 mg tablet 4 mg PO DAILY Qty: 90 3RF tamsulosin 0.4 mg capsule 0.4 mg PO DAILY 90 Days Qty: 90 2RF allopurinol 100 mg tablet 100 mg PO DAILY Qty: 90 2RF tadalafil 20 mg tablet 20 mg PO DIRECTED Qty: 4 11RF metoprolol succinate 100 mg tablet extended release 24 hr 100 mg PO DAILY Qty: 90 3RF amlodipine 10 mg tablet 10 mg PO DAILY Qty: 90 3RF cyclobenzaprine 10 mg tablet 10 mg PO TID PRN (Reason: muscle spasm) 7 Days Qty: 20 0RF naproxen [EC-Naproxen] 500 mg tablet,delayed release (DR/EC) 500 mg PO BID PRN (Reason: for pain) Qty: 60 2RF indapamide 2.5 mg tablet 2.5 mg PO QAM Qty: 90 1RF atorvastatin 10 mg tablet 10 mg PO DAILY Qty: 90 2RF Centrum Silver Men 300-600-300 mcg tablet 1 tab PO DAILY cholecalciferol (vitamin D3) 25 mcg (1,000 unit) capsule 25 mcg PO DAILY clotrimazole 1 % solution 1 appl topical BID 28 Days Qty: 30 0RF Zeasorb AF 2 % powder 1 appl topical BID Qty: 71 1RF (DME) blood-glucose meter [FreeStyle Lite Meter] Kit See Rx Instructions .ROUTE .MEDSUPPLY Qty: 1 0RF Rx Instructions: As directed (DME) FreeStyle Lite Strips Strip See Rx Instructions .ROUTE .MEDSUPPLY Qty: 100 3RF Rx Instructions: As directed check the BS QD (DME) lancets [FreeStyle Lancets] 28 gauge misc See Rx Instructions .ROUTE .MEDSUPPLY Qty: 100 3RF Rx Instructions: As directed check BS QD Discharge Orders: Discharge Order (Routine); Ordered 06/07/22 Ordered By: Isabelle Rees Activity on Discharge: Use cane or walker Stand Alone Forms: Patient Portal Discharge page Care Plan Goals: restore fxn to left hip Health Concerns: none Plan of Treatment: Physical Therapy for total hip arthroplasty: posterior precautions, gait training, ROM, strength Limit stair climbing No showering, no tub bath-keep dressing clean, dry and intact No driving x6 weeks Continue Lovenox tabs once a day x 4 weeks Follow up with [facility] in 2 weeks Assessment: stable for discharge
[2022-06-07] MEDS: oxyCODONE HCl Immed Release 5 MG TABLET 10 MG PO (17:36)
== END 2022-06-07 18:30 | disposition home health service (06) | DRG 470 ==
LOC: HO.SSSA 06:28 → HO.S3 12:28
PROVIDERS: Nurse Practitioner; Nurse Practitioner Family; Physician Assistant; Admitting Provider Orthopaedic Surgery; PCP Internal Medicine; Visit Provider Orthopaedic Surgery
PROC: 0SRB03A Replacement of Left Hip Joint with Ceramic Synthetic Substitute, Uncemented, Open Approach (ICD-10-PCS; CPT 27130; principal; 2022-06-06 07:30)
DX: M16.12 Unilateral primary osteoarthritis, left hip (principal); N40.0 Benign prostatic hyperplasia without lower urinary tract symptoms; E11.9 Type 2 diabetes mellitus without complications; I10 Essential (primary) hypertension; E66.9 Obesity, unspecified; Z68.35 Body mass index [BMI] 35.0-35.9, adult; M50.30 Other cervical disc degeneration, unspecified cervical region; Z20.822 Contact with and (suspected) exposure to COVID-19; Z96.641 Presence of right artificial hip joint; Z79.899 Other long term (current) drug therapy
CPT/HCPCS: 36415; 72170; 80048; 80051; 82565; 82947; 83036; 84443; 84520; 85025; 85610; 86850; 86900; 86901; 87635; 87640; 87641; 88304; 88311; 93005; 97110; 97116; 97161; 97165; C1776; J0131; J0690; J1100; J1170; J2250; J2405; J2795; J3010

== ENCOUNTER 2022-08-03 10:00 | Outpatient (RCR) | payer OTHER, SELFPAY ==
--- NOTE | 2022-06-22 12:28 | MHC.PT.EP ---
[facility] [place] [facility] [place] [facility] [place] Office [address] Agnieszka Jackson [address] [phone] F: [phone] F: [phone] F: [phone] F: [phone] Physical Therapy Plan of Care Date of Evaluation: Date of Surgery: 06/06/22 Diagnosis: S/P LEFT ELIZABETH 06/06/22 Assessment: 62 YO MALE REF TO PT S/P LEFT ELIZABETH ON 05/16/22. HE RESIDES W HIS PARTNER IN A 2 LEVEL HOME AND IS CURRENTLY AMB W A CANE. OBJECTIVE FINDINGS: PO ROM DEFICITS RIGHT HIP, TIGHT HIP FLEXORS/ CALF MM, (+) STRENGTH DEFICITS, AND MILD RIGHT PROX LE PAIN. Pt IS VERY SAFETY AWARE WITH RESTRICTIONS/ PRECAUTIONS. FUNCTIONALLY, Pt IS CURRENTLY LIMITED WITH MILD DIFFIC W BED MOB, DECR STANDING, ALTERED GAIT MECHANICS, HE IS NOT CLEARED TO DRIVE, STAIR MGMT (BUILDING CONFIDENCE), AND RESTRICTED WITH MORE PHYSICALLY DEMANDING ADLs. HE IS MOTIVATED FOR PT TO ASSIST HIM IN BEING ABLE TO MEET HIS WORK DEMANDS ONCE CLEARED FOR RTW (12 HR SHIFTS). Pt WOULD BENEFIT FROM PT AT THIS TIME TO GUIDE HIM IN HIS POST-OP COURSE, DEV A PROGR HEP, ADDRESS PAIN MGMT, AND OBTAINING MAXIMAL LEVEL OF FUNCTIONAL INDEPENDENCE. Frequency and Duration: The patient will be seen 2 x WK x 10 WKS Short Term Goals: *Pt DEMON EFFICIENT TRANSFERS AND GAIT MECHANICS W CANE *INITIATE HEP *Pt'S LEFT HIP PAIN DECR TO 2-3/10 W BASIC ADLs *WFL AROM LEFT LE (PSOAS AND CALF) W RESPECT TO ELIZABETH PRECAUTIONS *Pt DMEON PROPER TECHN W STAIR MGMT [facility] Goals: Pt INDEP W HEP PROGRESSION AND SELF-SX MGMT STRATEGIES IN 10 WKS Pt RESUME REG ADLs EVIDENT W IMPROVED LEFI SCORE BY 8-10 POINTS (AT EVAL 27/80 ) IN 10 WKS Pt INCR LEFT LE STRENGTH BY 1 GRADE IN 10 WKS Treatment Plan: Modalities to reduce pain, spasms and effusion. Manual therapy to restore motion and function. Therapeutic exercise to improve strength and flexibility. Neuromuscular re-education for posture and balance. Therapeutic activities to return to functional activities of daily living. Electronically signed by: Misty Richmond PT Please sign and return to therapist. Thank you for your referral.
--- NOTE | 2022-08-03 11:17 | MHC.PT.DC ---
[facility] [place] [facility] [place] Office [place] Office [address] Agnieszka Jackson [address] [phone] F: [phone] F: [phone] F: [phone] F: [phone] Physical Therapy Discharge Report Diagnosis: S/P LEFT ELIZABETH 06/06/22 Date of Surgery: 06/06/22 Date of Evaluation: 06/22/22 Date of Discharge: 08/03/22 Treatments to Date: 11 Cancellations to Date: No Shows to Date: Discharge Status: Achieved Goals Improved Function Independent with HEP Discharge Summary: Patient continues to do well, he demos WFL ROM and strength but understands he needs to continue to be conscious of his hip precautions. At this time he feels ready for DC. He has a thorough HEP to continue on his own and is very motivated and compliant with the program. He has progressed appropriately, normalized gait without AD and reports no pain. DC to HEP. Electronically signed by: Kacey Osullivan PT Please sign and return to therapist. Thank you for your referral.
== END 2022-08-03 11:18 | disposition home or self-care (01) ==
LOC: HO.PTCHIC 10:00
PROVIDERS: Visit Provider Physician Assistant
DX: Z96.642 Presence of left artificial hip joint (principal)
CPT/HCPCS: 97110; 97162; 97530

== ENCOUNTER 2022-08-31 | Outpatient (REF) | payer OTHER, SELFPAY ==
--- NOTE | ~2022-08-31 | XR_ITS ---
EXAMINATION: XR hip LT 1V, XR pelvis 1-2V CLINICAL INFORMATION: Reason for Exam M25.552 - Pain in left hip COMPARISON: 06/06/2022 TECHNIQUE: AP view of the pelvis and crosstable view of the left hip XR/XR pelvis 1-2V FINDINGS/IMPRESSION: * Bilateral hip arthroplasties. No evidence of dislocation of the left hip joint. No evidence of hardware complication.
--- NOTE | ~2022-08-31 | XR_ITS ---
EXAMINATION: XR hip LT 1V, XR pelvis 1-2V CLINICAL INFORMATION: Reason for Exam M25.552 - Pain in left hip COMPARISON: 06/06/2022 TECHNIQUE: AP view of the pelvis and crosstable view of the left hip XR/XR hip LT 1V FINDINGS/IMPRESSION: * Bilateral hip arthroplasties. No evidence of dislocation of the left hip joint. No evidence of hardware complication.
== END 2022-08-31 00:01 | disposition home or self-care (01) ==
LOC: HO.HOSX
PROVIDERS: Visit Provider Orthopaedic Surgery
DX: M25.552 Pain in left hip (principal)
CPT/HCPCS: 72170; 73501

== ENCOUNTER → 2022-12-26 13:27 | Outpatient (BNVA) | payer OTHER, SELFPAY | PROVIDERS: PCP Internal Medicine; Visit Provider Dietitian, Registered | DX: E11.65 Type 2 diabetes mellitus with hyperglycemia (principal) | CPT/HCPCS: 97802 ==

== ENCOUNTER 2023-08-09 07:34 | Outpatient (REF) | payer OTHER, SELFPAY ==
[2023-08-09 11:06] LABS: MANUAL DIFF FLAG NO
[2023-08-09 11:19] LABS: Basophils Absolute Auto 0.1 X10*3/uL (0.0-0.2); Basophils Percent Auto 0.6 % (0-2); Eosinophils Absolute Auto 0.2 X10*3/uL (0.0-0.4); Eosinophils Percent Auto 2.5 % (0-4); Hemoglobin 16.2 g/dl (14.0-18.0); Imm Gran Abs Auto 0.02 X10*3/uL (0.00-0.03); Imm Gran Pct Auto 0.2 % (0.0-0.4); Lymphocytes Absolute Auto 1.8 X10*3/uL (1.2-4.9); Lymphocytes Percent Auto 21.9 % (20-40); Mean Corpuscular Hemoglobin 30.9 pg (27.0-33.0); Mean Corpuscular Volume 85.7 fL (80.0-98.0); Mean Platelet Volume 10.3 fL (9.4-12.4); Monocytes Absolute Auto 0.5 X10*3/uL (0.1-1.2); Monocytes Percent Auto 6.2 % (2-11); Neutrophils Absolute Auto 5.7 x10*3/uL (2.0-8.3); Neutrophils Percent Auto 68.6 % (45-73); Platelet Count 227 X10*3/uL (160-400); Red Blood Count 5.25 X10*6/uL (4.60-5.80); Red Cell Distribution Width 12.3 % (11.0-16.0); White Blood Count 8.4 X10*3/uL (4.8-10.8)
[2023-08-09 11:47] LABS: Microalbum/Creatinine Ratio Ur 5.4 ug/mg cr (<30)
[2023-08-09 11:59] LABS: Folate 15.1 ng/mL (> or = 4.0); Prostate Specific Antigen Scr 0.65 ng/mL (<0.05-4.0); Vitamin B12 513 pg/mL (200-900)
[2023-08-09 12:03] LABS: Alanine Aminotransferase 29 U/L (0-40); Albumin Level 4.4 g/dL (3.5-5.0); Alkaline Phosphatase 60 U/L (39-117); Anion Gap 20 (12-20); Aspartate Amino Transferase 30 U/L (5-37); Blood Urea Nitrogen 16 mg/dL (9-16); Calcium 9.9 mg/dL (8.4-10.2); Carbon Dioxide 27 mmol/L (22-29); Chloride 96 mmol/L (96-108); Cholesterol 166 mg/dL (<200); Estimated Glomerular Filt Rate > 60; Glucose Random 184 mg/dL (60-115); HDL Cholesterol 36 mg/dL (>40); LDL Cholesterol Calculated 69 mg/dL (<100); Potassium 3.2 mmol/L (3.3-5.1); Sodium 140 mmol/L (135-145); Total Protein 7.7 g/dL (6.5-8.0); Triglycerides 308 mg/dL (<150)
[2023-08-09 12:10] LABS: Free T4 (Free Thyroxine) 1.12 ng/dL (0.71-1.85); Thyroid Stimulating Hormone 1.64 uIU/mL (0.32-4.0)
== END 2023-08-09 07:35 | disposition home or self-care (01) ==
LOC: HO.HMGCLDS 07:34
PROVIDERS: PCP Internal Medicine; Visit Provider Internal Medicine
DX: Z12.5 Encounter for screening for malignant neoplasm of prostate (principal); E11.65 Type 2 diabetes mellitus with hyperglycemia; E78.00 Pure hypercholesterolemia, unspecified
CPT/HCPCS: 36415; 80053; 80061; 82043; 82570; 82607; 82746; 84153; 84439; 84443; 85025

== ENCOUNTER 2023-08-15 10:15 | Outpatient (AMB) | payer OTHER, SELFPAY ==
[2023-08-15 10:52] VITALS: BP 144/80; PULSE 75; O2SAT 95; BMI 34.9
--- NOTE | 2023-08-15 10:52 | A.OFFPC_ITS ---
Vital Signs 08/15/23 10:52 Height 5 ft 11 in Weight 250 lb BMI 34.9 BP 144/80 H Blood Pressure Location Lt brachial Position Sitting Pulse 75 Pulse Source Pulse Oximeter Pulse Oximetry (%) 95 Oxygen Delivery Method Room Air Intake Visit Reasons: Annual Exam Allergies enalaprilat [From VASOTEC] Allergy (Severe, Verified 08/15/23 10:53) SWELLING Medication List - Last Reconciled 08/15/23 by Elia Davies MD allopurinol 100 mg PO DAILY amlodipine 10 mg PO DAILY atorvastatin 10 mg PO DAILY blood sugar diagnostic (FreeStyle Lite Strips) As directed check the BS QD blood-glucose meter (FreeStyle Lite Meter kit) As directed cholecalciferol (vitamin D3) 25 mcg PO DAILY doxazosin 4 mg PO DAILY indapamide 2.5 mg PO QAM lancets (FreeStyle Lancets) As directed check BS QD metformin 500 mg PO BIDWMEAL metoprolol succinate ER 100 mg PO DAILY miconazole nitrate 2% (Zeasorb AF) 1 appl topical BID [id number] mcg (Centrum Silver Men) 1 tab PO DAILY naproxen (EC-Naproxen) 500 mg PO BID PRN tadalafil 20 mg PO DIRECTED tamsulosin 0.4 mg PO DAILY 90 days triamcinolone acetonide 0.5% 1 appl topical BID 14 days Tobacco use date assessed: 04/26/23 Fall risk assessment: No Falls in past year Last assessed Fall Risk: 08/15/23 Dental Screening Dental Screen Date: 08/15/23 Did you have a dental visit in the last 12 months?: Yes Did you have a dental problem in the last 6 months where you did not have access to dental care?: No Was dental information given to patient?: Patient has dentist HPI Annual Exam HPI Details 63-year-old obese male with Uncontrolled diabetes mellitus GERD BPH hypertension hypercholesterolemia coming in for annual physical last seen in April 2023. Patient's colonoscopy is up-to-date January 2022 [facility] Medical History (Updated 08/15/23 @ 11:52 by Elia Davies MD) Osteoarthritis of left hip Preoperative clearance Elevated blood sugar Hearing loss in right ear On beta hope at home Tubular adenoma of colon Mastoiditis Degenerative disc disease, cervical Hip osteoarthritis GERD (gastroesophageal reflux disease) BPH (benign prostatic hyperplasia) Erectile dysfunction Obesity Hypercholesterolemia Gout Hypertension Surgical History (Updated 04/26/23 @ 15:48 by Elia Davies MD) History of colonoscopy H/O total hip arthroplasty H/O left knee surgery Family History (Updated 04/26/23 @ 15:56 by Elia Davies MD) Father CVD (cardiovascular disease) Hypertension Mother Alzheimer disease Brother Lupus CVD (cardiovascular disease) Sister Lupus Social History (Updated 08/15/23 @ 11:38 by Elia Davies MD) Housing: House Are you a primary care transitions nurse to a significant other at home: No Do you presently have visiting nurse or other home services: No Alcohol intake: current Patient Tobacco Use Status: Former Tobacco user Tobacco use type: Cigarette Years Smoked: quit 1986, smokes pot - e-Cigarette/Vaping Use: Never Used Second Hand Smoke Exposure: No service: No Current occupational status: employed 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 1. Little interest or pleasure in doing things: not at all 2. Feeling down, depressed, or hopeless: not at all 3. Trouble falling or staying asleep, or sleeping too much: not at all 4. Feeling tired or having little energy: not at all 5. Poor appetite or overeating: not at all 6. Feeling bad about yourself - or that you are a failure or have let yourself or your family down: not at all 7. Trouble concentrating on things, such as reading the newspaper or watching television: not at all 8. Moving or speaking so slowly that other people could have noticed. Or the opposite - being so fidgety or restless that you have been moving around a lot more than usual: not at all 9. Thoughts that you would be better off or of hurting yourself in some way: not at all Total score: 0 Depression Screening Interpretation: Negative Depression Screening Done: Yes Source: Developed by Drs. Gus Akbar, Naomy Mathis, Osito Wooten and colleagues, with an educational alisia from [employer]. Thrive Questionnaire Date Thrive assessed: 04/26/23 AUDIT C Alcohol Use Questionnaire (AUDIT-C) 1. How often do you have a drink containing alcohol?: Monthly or less 2. How many drinks containing alcohol do you have on a typical day when you are drinking?: 1 or 2 3. How often do you have six or more drinks on one occasion?: Never Total Score: 1 Score Reviewed/Action Taken: No PHILIP-7 AMB Questionnaire PHILIP-7 Date PHILIP - 7 assessed: 04/26/23 Source: Developed by Drs. Gus Akbar, Naomy Mathis, Osito Wooten and colleagues, with an educational alisia from [employer]. Review of Systems Const Denies poor appetite and Denies weakness Eyes Denies no additional complaints ENT Reports Normal hearing present, Denies dizziness, Denies nasal congestion, Denies tinnitus and Denies sore throat Card Denies chest pain, Denies syncope, Denies rapid heart rate and Denies dyspnea Resp Denies cough and Denies dyspnea GI Denies change in stool character, Reports constipation, Denies diarrhea, Denies nausea and Denies vomiting Denies dysuria and Denies urinary frequency Neuro Reports Normal hearing present, Denies confusion, Denies dizziness, Denies syncope and Denies weakness Psych Denies confusion Physical exam (Primary Care) Vital Signs: Last Vital Signs Pulse 75 08/15/23 10:52 BP 144/80 H 08/15/23 10:52 Pulse Ox 95 08/15/23 10:52 Oxygen Delivery Method Room Air 08/15/23 10:52 Care Plan Goal for BP management: pedal pulse good pin prick good, interdigital scaly rash BMI result Body Mass Index 34.9 Tobacco/Smoking Status: Tobacco use Status Tobacco use date assessed 04/26/23 08/15/23 10:57 Patient Tobacco Use Status Former Tobacco user 08/15/23 10:57 Tobacco use type Cigarette 08/15/23 10:57 e-Cigarette/Vaping Use Never Used 08/15/23 10:57 PHQ-9: PHQ-9 Score PHQ-9: Total score 0 08/15/23 11:29 Depression Screening Interpretation: Negative Thrive Assessment: Date of Thrive Assessment Date Thrive assessed 04/26/23 08/15/23 10:57 Const General: No confusion Orientation/consciousness: No confusion HENMT Head: Yes normocephalic Ears: external ears normal and TM's normal bilaterally Face and sinus: Yes normal facial exam Mouth: moist mucous membranes Throat: Yes tonsils normal Eyes Conjunctivae: conjunctivae normal Pupils: Equal, round and reactive pupils present and Pupil accommodation reflex normal Direct Ophthalmoscopy: normal light reflex Neck Neck: No lymphadenopathy Thyroid: Thyroid normal Chest Chest palpation & inspection: normal inspection of the chest Resp Effort & Inspection: normal respiratory effort and no audible wheezes Auscultation: clear to auscultation bilaterally, no crackles, no wheezes and lung sounds not diminished Cardio Rate: regular rate Rhythm: regular rhythm Peripheral pulses: radial pulses present and dorsalis pedis present GI Other: guiac negative prostate mild enlarged Palpation (GI): no masses Auscultation: normal bowel sounds and normoactive bowel sounds Male General Exam: Yes normal external exam Skin General skin exam: no rashes or lesions noted Rashes: no rashes Neuro General: No confusion Cranial nerves: Yes Equal, round and reactive pupils present and Yes Normal hearing present Cognition (Neuro): normal cognition Gait exam (Neuro): Normal gait present Motor exam (neuro): 5/5 motor strength present throughout Deep tendon reflexes (DTR's): Right brachioradialis reflex intensity grade: 2+, Left brachioradialis reflex intensity grade: 2+, Right patellar reflex intensity grade: 2+ and Left patellar reflex intensity grade: 2+ Extrem General: No edema Results AMB Hemoglobin A1c AMB Hemoglobin A1c 7.0 % Last Edit by Dahlia Oviedo CMA on 08/15/23 11 :29 Results Reviewed Results Reviewed: Laboratory Last Values Hgb A1c (Clinic) 7.0 % (4.0-6.0) H 08/15/23 10:52 Assessment and Plan Assessment & Plan (1) Annual physical exam: Code(s): Z00.00 - Encounter for general adult medical examination without abnormal findings (2) Type 2 diabetes mellitus with hyperglycemia: Comment: [facility] Code(s): E11.65 - Type 2 diabetes mellitus with hyperglycemia Plan: Decrease the amount of carbohydrate intake, pasta, bread, rice and potatoes are all sugar and that is aside from all the sweet stuff, remember that fruits are good but they are Sweet also. Hemoglobin A1c goal of less than 6.5. Patient is on metformin 500 mg twice a day (3) GERD (gastroesophageal reflux disease): Code(s): K21.9 - Gastro-esophageal reflux disease without esophagitis Qualifiers: Esophagitis presence: without esophagitis Qualified Code(s): K21.9 - Gastro-esophageal reflux disease without esophagitis Plan: Avoid the foods that causes that usually spicy foods, tomato products, juices, coffee, soda and foods that your sensitive to. After eating do not lie down, allow 3-4 hours before in lie down. And keep the head of bed above 30 degrees to avoid the acid from going up. (4) Hypercholesterolemia: Code(s): E78.00 - Pure hypercholesterolemia, unspecified Plan: Avoid fried foods, chicken skin, eggs, butter margarine, pastries and meat. Be it pork or beef they have a lot of cholesterol LDL goal of less than 100 and triglyceride of less than 150 patient on atorvastatin 10 mg once a day (5) Hypertension: Code(s): I10 - Essential (primary) hypertension Qualifiers: Hypertension type: essential hypertension Qualified Code(s): I10 - Essential (primary) hypertension Plan: Continue with blood pressure medication. Decrease salt intake and exercise patient is taking amlodipine 10 mg once a day in the home I 2.5 mg once a day metoprolol 100 mg once a day (6) BPH (benign prostatic hyperplasia): Code(s): N40.0 - Benign prostatic hyperplasia without lower urinary tract symptoms Qualifiers: Lower urinary tract symptom presence: symptoms present Lower urinary tract symptom detail: urinary frequency Qualified Code(s): N40.1 - Benign prostatic hyperplasia with lower urinary tract symptoms; R35.0 - Frequency of micturition Plan: Continue with tamsulosin to the Mable fill and ox as in (7) Obesity (BMI 30-39.9): Code(s): E66.9 - Obesity, unspecified Plan: Diet and exercise (8) Otitis media: Code(s): H66.90 - Otitis media, unspecified, unspecified ear (9) Tinea pedis: Code(s): B35.3 - Tinea pedis Orders: Orders AMB Hemoglobin A1c Today Z13.9 - Encounter for screening, unspecified Medications: New amoxicillin-pot clavulanate 500-125 mg (Augmentin) 1 tab PO BID 14 tabs 0RF H66.90 - Otitis media, unspecified, unspecified ear miconazole nitrate 2% (Zeasorb AF) 1 appl topical BID 85 grams 2RF B35.3 - Tinea pedis losartan 50 mg PO DAILY 30 tabs 3RF I10 - Essential (primary) hypertension glipizide ER 5 mg PO DAILY 30 tabs 3RF E11.65 - Type 2 diabetes mellitus with hyperglycemia nejtzxfm-jwndukxfx-SF 3.5-10,000-1 mg/mL-unit/mL-% 4 drps otic (ears) Q8H 10 days 10 mL 1RF H66.90 - Otitis media, unspecified, unspecified ear clotrimazole 1% 1 appl topical BID 4 weeks 45 grams 0RF B35.3 - Tinea pedis Discontinued indapamide Discontinued Reason: Change Referral Type 2.5 mg PO QAM 90 tabs 2RF Coding Level of Care Code Est Pt Prev Care 40-64y(85010) Diagnoses Annual physical exam Z00.00 Type 2 diabetes mellitus with hyperglycemia E11.65 Gastroesophageal reflux disease without esophagitis K21.9 Esophagitis presence: without esophagitis Hypercholesterolemia E78.00 Essential hypertension I10 Hypertension type: essential hypertension Benign prostatic hyperplasia with urinary frequency N40.1; R35.0 Lower urinary tract symptom presence: symptoms present Lower urinary tract symptom detail: urinary frequency Obesity (BMI 30-39.9) E66.9 Otitis media H66.90 Tinea pedis B35.3 Additional Codes PHQ-9 - 65891 - PHQ-9 Billing: ([id number])
== END 2023-08-15 12:05 | disposition home or self-care (01) ==
PROVIDERS: PCP Internal Medicine; Visit Provider Internal Medicine
DX: Z00.00 Encounter for general adult medical examination without abnormal findings (principal); E11.65 Type 2 diabetes mellitus with hyperglycemia; K21.9 Gastro-esophageal reflux disease without esophagitis; E78.00 Pure hypercholesterolemia, unspecified; I10 Essential (primary) hypertension; N40.1 Benign prostatic hyperplasia with lower urinary tract symptoms; R35.0 Frequency of micturition; E66.9 Obesity, unspecified; H66.90 Otitis media, unspecified, unspecified ear; B35.3 Tinea pedis
CPT/HCPCS: 83036; 99396

== ENCOUNTER 2023-10-02 10:50 | Outpatient (AMB) | payer OTHER, SELFPAY ==
--- NOTE | 2023-10-02 11:11 | MHC.PC.OV ---
Vital Signs 10/02/23 11:12 Height 5 ft 11 in Weight 230 lb BMI 32.1 BP 128/78 Blood Pressure Location Lt brachial Position Sitting Pulse 73 Pulse Source Pulse Oximeter Pulse Oximetry (%) 97 Oxygen Delivery Method Room Air Intake Visit Reasons: Severe Back Pain Intake Note: Patient is here today for severe back pain Base Ply Hand Required: No Foam Molder: Not Required per policy Accompanied by: Self / Same As Patient Allergies enalaprilat [From VASOTEC] Allergy (Severe, Verified 10/02/23 11:12) SWELLING Tobacco use date assessed: 10/02/23 Fall risk assessment: No Falls in past year Last assessed Fall Risk: 10/02/23 Dental Screening Dental Screen Date: 10/02/23 Did you have a dental visit in the last 12 months?: Yes Did you have a dental problem in the last 6 months where you did not have access to dental care?: No Was dental information given to patient?: Patient has dentist HPI HPI Comments History of Present Illness Details 63-year-old obese male with Uncontrolled diabetes mellitus GERD BPH hypertension hypercholesterolemia, Patient of presents today for a same day visit for back pain. Patient reports over 1 month ago he went to bend over and he felt something pull in his back. Patient reports has been experiencing muscle spasms in his lower back since then. Patient reports 10/10 lumbar back pain across whole lumbar back. Patient reports occasionally pain will shoot down his legs. Denies numbness and tingling in the lower extremities denies any bowel or bladder incontinence. Patient states pain is at a 0 when he is sitting however when he gets up to ambulate the pain worsens. Patient reports he has been using [id number] Biofreeze patches and creams, heating pad and previously prescribed naproxen 500 mg b.i.d. as needed for pain with minimal relief. [facility] Medical History (Updated 10/02/23 @ 11:39 by VISH Lopez) Osteoarthritis of left hip Preoperative clearance Elevated blood sugar Hearing loss in right ear On beta hope at home Tubular adenoma of colon Mastoiditis Degenerative disc disease, cervical Hip osteoarthritis GERD (gastroesophageal reflux disease) BPH (benign prostatic hyperplasia) Erectile dysfunction Obesity Hypercholesterolemia Gout Hypertension Surgical History (Updated 10/02/23 @ 11:23 by CHINTAN Ryder) History of total left hip replacement History of colonoscopy H/O total hip arthroplasty H/O left knee surgery Family History Father CVD (cardiovascular disease) Hypertension Mother Alzheimer disease Brother Lupus CVD (cardiovascular disease) Sister Lupus Social History Housing: House Are you a primary hospice care transitions coordinator to a significant other at home: No Do you presently have visiting nurse or other home services: No Alcohol intake: current Patient Tobacco Use Status: Former Tobacco user Tobacco use type: Cigarette Years Smoked: quit 1986, smokes pot - e-Cigarette/Vaping Use: Never Used Second Hand Smoke Exposure: No service: No Current occupational status: employed 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 Gus Akbar, Naomy Mathis, Osito Wooten and colleagues, with an educational alisia from [employer]. Review of Systems Const Denies chills, Denies fatigue, Denies fever(s) and Denies poor appetite Eyes Denies no additional complaints ENT Reports Normal hearing present Card Denies chest pain, Denies syncope, Denies rapid heart rate and Denies dyspnea Resp Denies cough and Denies dyspnea GI Denies change in stool character, Denies constipation, Denies diarrhea, Denies nausea and Denies vomiting Denies dysuria, Denies urinary frequency and Denies urinary urgency Musc Reports back pain (low back pain ) Neuro Reports Normal hearing present, Denies confusion and Denies syncope Psych Denies confusion Endo Denies fatigue Physical exam (Primary Care) Vital Signs: Last Vital Signs Pulse 73 10/02/23 11:12 BP 128/78 10/02/23 11:12 Pulse Ox 97 10/02/23 11:12 Oxygen Delivery Method Room Air 10/02/23 11:12 BMI result Body Mass Index 32.1 Tobacco/Smoking Status: Tobacco use Status Tobacco use date assessed 10/02/23 10/02/23 11:24 Patient Tobacco Use Status Former Tobacco user 10/02/23 11:24 Tobacco use type Cigarette 10/02/23 11:24 e-Cigarette/Vaping Use Never Used 10/02/23 11:24 Thrive Assessment: Date of Thrive Assessment Date Thrive assessed 04/26/23 10/02/23 11:24 Const General: No confusion Orientation/consciousness: No confusion HENMT Head: Yes normocephalic and Yes atraumatic Eyes Conjunctivae: conjunctivae normal Chest Chest palpation & inspection: normal inspection of the chest Resp Effort & Inspection: normal respiratory effort Auscultation: clear to auscultation bilaterally, no crackles, no rhonchi and no wheezes Cardio Rate: regular rate Rhythm: regular rhythm Heart sounds: S1 normal heart sound present and S2 normal heart sound present Peripheral pulses: dorsalis pedis present GI Inspection: Yes normal to inspection General: Yes no CVA tenderness Back/Spine/Pelvis Back: no CVA tenderness Cervical Spine: normal cervical lordosis Thoracic/Lumbar Spine: thoracic and lumbar spine normal to inspection, paraspinal muscle tenderness, No thoracic spinal tenderness, No lumbar spinal tenderness and straight leg raise positive (Pain exasperated to left lumbar spine with bilateral straight leg raises) Neuro General: No confusion Cranial nerves: Yes Normal hearing present Extrem General: No edema Assessment and Plan Assessment & Plan (1) Strain of lumbar paraspinal muscle: Code(s): S39.012A - Strain of muscle, fascia and tendon of lower back, initial encounter Plan: Cyclobenzaprine 5 mg t.i.d. sent to patient's pharmacy patient advised not to take the medication will driving or working as a can make him drowsy. Continue to take naproxen 500 mg b.i.d. as needed for pain, patient advised to take medication with food to prevent GI upset. Patient requesting prescription for Lidoderm patches, Rx sent. Referral entered for physical therapy. (2) Lumbar back pain: Code(s): M54.50 - Low back pain, unspecified Plan: Lumbar spine x-ray ordered to further evaluate for possible lumbar degenerative changes as patient reports history of arthritis. See muscle strain plan. Plan Keep scheduled follow-up with PCP or follow-up sooner if needed. Orders: Orders PT Evaluation and Treatment Today S39.012A - Strain of muscle, fascia and tendon of lower back, initial encounter XR lumbar spine 2-3V Today M54.50 - Low back pain, unspecified Medications: New cyclobenzaprine 5 mg PO TID PRN 14 tabs 0RF muscle spasm S39.012A - Strain of muscle, fascia and tendon of lower back, initial encounter lidocaine 5% (Lidoderm) leave on most painful area for up to 12 hrs 1 patch topical DAILY 15 ea 0RF M54.50 - Low back pain, unspecified Coding Level of Care Code Est Pt Level 3 (13494) Diagnoses Strain of lumbar paraspinal muscle S39.012A Lumbar back pain M54.50
[2023-10-02 11:12] VITALS: BP 128/78; PULSE 73; O2SAT 97; BMI 32.1
== END 2023-10-02 11:44 | disposition home or self-care (01) ==
PROVIDERS: PCP Internal Medicine; Visit Provider Nurse Practitioner Family
DX: S39.012A Strain of muscle, fascia and tendon of lower back, initial encounter (principal); M54.50 Low back pain, unspecified
CPT/HCPCS: 99213

== ENCOUNTER 2023-10-05 09:02 | Outpatient (REF) | payer OTHER, SELFPAY ==
--- NOTE | ~2023-10-05 | XR_ITS ---
EXAMINATION: XR LUMBOSACRAL SPINE CLINICAL INFORMATION: Lower back pain. COMPARISON: None available. TECHNIQUE: AP and lateral views of the lumbar spine and lateral view of the lumbosacral junction. FINDINGS: Vertebral body heights and alignment are normal. The lumbar disc spaces are well-maintained. No acute fracture or spondylolisthesis is seen. There is multi-level marked lower thoracic and mild lumbar spondylosis. The posterior elements are intact. The paravertebral soft tissues are unremarkable. Bilateral hip arthroplasties are noted. XR/XR lumbar spine 2-3V IMPRESSION: 1. No acute fracture or spondylolisthesis is seen. 2. The lower thoracic and lumbar disc spaces are well-maintained. 3. There is multi-level thoracolumbar spondylosis.
== END 2023-10-05 09:03 | disposition home or self-care (01) ==
LOC: HO.XRAY 09:02
PROVIDERS: PCP Internal Medicine; Visit Provider Nurse Practitioner Family
DX: M54.50 Low back pain, unspecified (principal)
CPT/HCPCS: 72100

== ENCOUNTER 2023-12-04 09:45 | Outpatient (AMB) | payer OTHER, SELFPAY ==
--- NOTE | 2023-12-04 09:52 | MHC.PC.OV ---
Vital Signs 12/04/23 09:53 Height 5 ft 11 in Weight 249 lb 0.6 oz BMI 34.7 BP 158/86 H Blood Pressure Location Lt brachial Position Sitting Pulse 66 Pulse Source Pulse Oximeter Pulse Oximetry (%) 97 Oxygen Delivery Method Room Air Intake Visit Reasons: 3 month f/u Intake Note: Patient is here to follow up on 3 months Cause Analyst Required: No Allergies enalaprilat [From VASOTEC] Allergy (Severe, Verified 12/04/23 09:52) SWELLING Medication List - Last Reconciled 12/04/23 by Elia Davies MD allopurinol 100 mg PO DAILY amlodipine 10 mg PO DAILY atorvastatin 10 mg PO DAILY blood sugar diagnostic (FreeStyle Lite Strips) As directed check the BS QD blood-glucose meter (FreeStyle Lite Meter kit) As directed cholecalciferol (vitamin D3) 25 mcg PO DAILY clotrimazole 1% 1 appl topical BID 4 weeks cyclobenzaprine 5 mg PO TID PRN 10 days doxazosin 4 mg PO DAILY glipizide ER 5 mg PO DAILY lancets (FreeStyle Lancets) As directed check BS QD lidocaine 5% (Lidoderm) 1 patch topical DAILY losartan 50 mg PO DAILY metformin 500 mg PO BIDWMEAL metoprolol succinate ER 100 mg PO DAILY miconazole nitrate 2% (Zeasorb AF) 1 appl topical BID [id number] mcg (Centrum Silver Men) 1 tab PO DAILY naproxen (EC-Naproxen) 500 mg PO BID PRN tadalafil 20 mg PO DIRECTED tamsulosin 0.4 mg PO DAILY 90 days triamcinolone acetonide 0.5% 1 appl topical BID 14 days Tobacco use date assessed: 12/04/23 Fall risk assessment: No Falls in past year Last assessed Fall Risk: 12/04/23 Dental Screening Dental Screen Date: 12/04/23 Did you have a dental visit in the last 12 months?: No Did you have a dental problem in the last 6 months where you did not have access to dental care?: No HPI 3 month f/u HPI Details 63-year-old obese male with hypertension, hypercholesterolemia BPH GERD diabetes mellitus coming in for follow-up. Last seen in September 2023 for low back pain. Patient's colonoscopy is up-to-date January 2022 with tubular adenoma. X-ray done of the lower back showing multilevel thoracolumbar spondylosis but disc spaces are well-maintained. BP at home is good. [facility] Medical History (Updated 10/02/23 @ 11:39 by VISH Lopez) Osteoarthritis of left hip Preoperative clearance Elevated blood sugar Hearing loss in right ear On beta hope at home Tubular adenoma of colon Mastoiditis Degenerative disc disease, cervical Hip osteoarthritis GERD (gastroesophageal reflux disease) BPH (benign prostatic hyperplasia) Erectile dysfunction Obesity Hypercholesterolemia Gout Hypertension Surgical History (Updated 10/02/23 @ 11:23 by CHINTAN Ryder) History of total left hip replacement History of colonoscopy H/O total hip arthroplasty H/O left knee surgery Family History Father CVD (cardiovascular disease) Hypertension Mother Alzheimer disease Brother Lupus CVD (cardiovascular disease) Sister Lupus Social History Housing: House Are you a primary landcare facilitator to a significant other at home: No Do you presently have visiting nurse or other home services: No Alcohol intake: current Patient Tobacco Use Status: Former Tobacco user Tobacco use type: Cigarette Years Smoked: quit 1986, smoke pot - e-Cigarette/Vaping Use: Never Used Second Hand Smoke Exposure: No service: No Current occupational status: employed 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 1. Little interest or pleasure in doing things: not at all 2. Feeling down, depressed, or hopeless: not at all 3. Trouble falling or staying asleep, or sleeping too much: not at all 4. Feeling tired or having little energy: not at all 5. Poor appetite or overeating: not at all 6. Feeling bad about yourself - or that you are a failure or have let yourself or your family down: not at all 7. Trouble concentrating on things, such as reading the newspaper or watching television: not at all 8. Moving or speaking so slowly that other people could have noticed. Or the opposite - being so fidgety or restless that you have been moving around a lot more than usual: not at all 9. Thoughts that you would be better off or of hurting yourself in some way: not at all Total score: 0 Depression Screening Interpretation: Negative Depression Screening Done: Yes Source: Developed by Drs. Gus Akbar, Osito Dooley and colleagues, with an educational alisia from [employer]. Thrive Questionnaire Date Thrive assessed: 12/04/23 I am a: Patient What is your living situation today?: I have a steady place to live Within the past 12 months, did the food you bought not last and you didn't have the money to get more?: Never true Within the past 12 months, did you worry whether your food would run out before you got money to buy more?: Never true Do you have trouble paying for medicines?: No Do you have trouble getting transportation to medical appointments?: No Do you have trouble paying your heating and electricity bill?: No Do you have trouble taking care of your child, family member or friend?: No Do you have trouble with day-to-day activities such as bathing, preparing meals, shopping, managing finances, etc.?: No Are you currently unemployed and looking for a job?: No Are you interested in more education?: No Please select the resources that you would like help with: None THRIVE Score: 0 AUDIT C Alcohol Use Questionnaire (AUDIT-C) 1. How often do you have a drink containing alcohol?: Monthly or less 2. How many drinks containing alcohol do you have on a typical day when you are drinking?: 1 or 2 3. How often do you have six or more drinks on one occasion?: Never Total Score: 1 Score Reviewed/Action Taken: No PHILIP-7 AMB Questionnaire PHILIP-7 Date PHILIP - 7 assessed: 12/04/23 Source: Developed by Drs. Gus Akbar, Naomy Mathis, Osito Wooten and colleagues, with an educational alisia from [employer]. Physical exam (Primary Care) Vital Signs: Last Vital Signs Pulse 66 12/04/23 09:53 BP 158/86 H 12/04/23 09:53 Pulse Ox 97 12/04/23 09:53 Oxygen Delivery Method Room Air 12/04/23 09:53 BMI result Body Mass Index 34.7 Tobacco/Smoking Status: Tobacco use Status Tobacco use date assessed 12/04/23 12/04/23 09:53 Patient Tobacco Use Status Former Tobacco user 12/04/23 09:53 Tobacco use type Cigarette 12/04/23 09:53 e-Cigarette/Vaping Use Never Used 12/04/23 09:53 PHQ-9: PHQ-9 Score PHQ-9: Total score 0 12/04/23 10:06 Depression Screening Interpretation: Negative Thrive Assessment: Date of Thrive Assessment Date Thrive assessed 12/04/23 12/04/23 09:53 Const General: alert; No acute distress Eyes Conjunctivae: conjunctivae normal Resp Auscultation: clear to auscultation bilaterally Cardio Rate: regular rate Rhythm: regular rhythm GI Inspection: Yes normal to inspection Extrem General: Yes normal to inspection and No edema Results AMB Hemoglobin A1c AMB Hemoglobin A1c 5.2 % Last Edit by CHINTAN Santos on 12/04/23 10:06 Results Reviewed Results Reviewed: Laboratory Last Values Hgb A1c (Clinic) 5.2 % (4.0-6.0) 12/04/23 09:06 Assessment and Plan Assessment & Plan (1) Type 2 diabetes mellitus with hyperglycemia: Comment: [facility] Code(s): E11.65 - Type 2 diabetes mellitus with hyperglycemia Plan: Decrease the amount of carbohydrate intake, pasta, bread, rice and potatoes are all sugar and that is aside from all the sweet stuff, remember that fruits are good but they are Sweet also. Hemoglobin A1c goal of less than 6.5. Patient presently on metformin 500 mg twice a day and glipizide 5 mg once a day. Denies any hypoglycemic episodes patient has been doing fine (2) Hypertension: Code(s): I10 - Essential (primary) hypertension Qualifiers: Hypertension type: essential hypertension Qualified Code(s): I10 - Essential (primary) hypertension Plan: Continue with blood pressure medication. Decrease salt intake and exercise on losartan 50 mg once a day and metoprolol 100 mg once a day amlodipine 10 mg once a day. Blood pressure has been high here but the patient has been checking at home and blood pressure is good (3) Hypercholesterolemia: Code(s): E78.00 - Pure hypercholesterolemia, unspecified Plan: Avoid fried foods, chicken skin, eggs, butter margarine, pastries and meat. Be it pork or beef they have a lot of cholesterol LDL goal of less than 100 and triglyceride of less than 150 patient takes atorvastatin 10 mg once a day. Last blood work in August reveals at goal LDL but the triglyceride is elevated (4) Obesity: Code(s): E66.9 - Obesity, unspecified Qualifiers: Obesity type: due to excess calories Obesity classification: adult class 2 (BMI 35 - 39.9) Serious obesity comorbidity presence: with serious comorbidity Body mass index: BMI 36.0-36.9 Qualified Code(s): E66.01 - Morbid (severe) obesity due to excess calories; Z68.36 - Body mass index [BMI] 36.0-36.9, adult Plan: Diet and exercise (5) BPH (benign prostatic hyperplasia): Code(s): N40.0 - Benign prostatic hyperplasia without lower urinary tract symptoms Qualifiers: Lower urinary tract symptom presence: symptoms present Lower urinary tract symptom detail: urinary frequency Qualified Code(s): N40.1 - Benign prostatic hyperplasia with lower urinary tract symptoms; R35.0 - Frequency of micturition Plan: Continue with tamsulosin and tadalafil and doxazosin (6) GERD (gastroesophageal reflux disease): Code(s): K21.9 - Gastro-esophageal reflux disease without esophagitis Qualifiers: Esophagitis presence: without esophagitis Qualified Code(s): K21.9 - Gastro-esophageal reflux disease without esophagitis Plan: Avoid the foods that causes that usually spicy foods, tomato products, juices, coffee, soda and foods that your sensitive to. After eating do not lie down, allow 3-4 hours before in lie down. And keep the head of bed above 30 degrees to avoid the acid from going up. (7) Lumbar back pain: Code(s): M54.50 - Low back pain, unspecified Plan: Keep active lose the weight. This has resolved. Orders: Orders AMB Hemoglobin A1c Today E11.65 - Type 2 diabetes mellitus with hyperglycemia Medications: Refilled tadalafil 20 mg PO DIRECTED 14 tabs 6RF Coding Level of Care Code Est Pt Level 4 (76041) Diagnoses Type 2 diabetes mellitus with hyperglycemia E11.65 Essential hypertension I10 Hypertension type: essential hypertension Hypercholesterolemia E78.00 Class 2 severe obesity due to excess calories with serious comorbidity and body mass index (BMI) of 36.0 to 36.9 in adult E66.01; Z68.36 Obesity type: due to excess calories Obesity classification: adult class 2 (BMI 35 - 39.9) Serious obesity comorbidity presence: with serious comorbidity Body mass index: BMI 36.0-36.9 Benign prostatic hyperplasia with urinary frequency N40.1; R35.0 Lower urinary tract symptom presence: symptoms present Lower urinary tract symptom detail: urinary frequency Gastroesophageal reflux disease without esophagitis K21.9 Esophagitis presence: without esophagitis Lumbar back pain M54.50 Additional Codes PHQ-9 - 90001 - PHQ-9 Billing: ([id number])
[2023-12-04 09:53] VITALS: BP 158/86; PULSE 66; O2SAT 97; BMI 34.7
== END 2023-12-04 10:50 | disposition home or self-care (01) ==
PROVIDERS: PCP Internal Medicine; Visit Provider Internal Medicine
DX: E11.65 Type 2 diabetes mellitus with hyperglycemia (principal); I10 Essential (primary) hypertension; E78.00 Pure hypercholesterolemia, unspecified; E66.01 Morbid (severe) obesity due to excess calories; Z68.36 Body mass index [BMI] 36.0-36.9, adult; N40.1 Benign prostatic hyperplasia with lower urinary tract symptoms; R35.0 Frequency of micturition; K21.9 Gastro-esophageal reflux disease without esophagitis; M54.50 Low back pain, unspecified
CPT/HCPCS: 83036; 99214

== ENCOUNTER 2024-03-12 10:02 | Outpatient (AMB) | payer OTHER, SELFPAY ==
[2024-03-12 10:16] VITALS: BP 142/88; PULSE 68; O2SAT 97; BMI 34.6
--- NOTE | 2024-03-12 10:16 | MHC.PC.OV ---
Vital Signs 03/12/24 10:16 Height 5 ft 11 in Weight 248 lb BMI 34.6 BP 142/88 H Blood Pressure Location Lt brachial Position Sitting Pulse 68 Pulse Source Pulse Oximeter Pulse Oximetry (%) 97 Oxygen Delivery Method Room Air Intake Visit Reasons: DM Allergies enalaprilat [From VASOTEC] Allergy (Severe, Verified 03/12/24 10:16) SWELLING Medication List - Last Reconciled 03/12/24 by Elia Davies MD allopurinol 100 mg PO DAILY amlodipine 10 mg PO DAILY atorvastatin 10 mg PO DAILY blood sugar diagnostic (FreeStyle Lite Strips) As directed check the BS QD blood-glucose meter (FreeStyle Lite Meter kit) As directed cholecalciferol (vitamin D3) 25 mcg PO DAILY clotrimazole 1% 1 appl topical BID 4 weeks cyclobenzaprine 5 mg PO TID PRN 10 days doxazosin 4 mg PO DAILY glipizide ER 5 mg PO DAILY lancets (FreeStyle Lancets) As directed check BS QD lidocaine 5% (Lidoderm) 1 patch topical DAILY losartan 50 mg PO DAILY metformin 500 mg PO BID metoprolol succinate ER 100 mg PO DAILY miconazole nitrate 2% (Zeasorb AF) 1 appl topical BID [id number] mcg (Centrum Silver Men) 1 tab PO DAILY naproxen (EC-Naproxen) 500 mg PO BID PRN tadalafil 20 mg PO DIRECTED tamsulosin 0.4 mg PO DAILY 90 days triamcinolone acetonide 0.5% 1 appl topical BID 14 days Tobacco use date assessed: 12/04/23 Fall risk assessment: No Falls in past year Last assessed Fall Risk: 03/12/24 Dental Screening Dental Screen Date: 03/12/24 Did you have a dental visit in the last 12 months?: No Did you have a dental problem in the last 6 months where you did not have access to dental care?: No Was dental information given to patient?: Patient has dentist HPI DM HPI Details 63-year-old obese male with controlled diabetes mellitus hypercholesterolemia hypertension BPH GERD last seen in November 2023. Patient's colonoscopy is up-to-date January 2022 last blood work was done in August 2023 noted though with hypokalemia LDL 69 patient denies any hypoglycemic episodes. Concern now is basically the blood pressure as it is high. Advised to check blood pressure at home [facility] Medical History (Updated 10/02/23 @ 11:39 by VISH Lopez) Osteoarthritis of left hip Preoperative clearance Elevated blood sugar Hearing loss in right ear On beta hope at home Tubular adenoma of colon Mastoiditis Degenerative disc disease, cervical Hip osteoarthritis GERD (gastroesophageal reflux disease) BPH (benign prostatic hyperplasia) Erectile dysfunction Obesity Hypercholesterolemia Gout Hypertension Surgical History (Updated 10/02/23 @ 11:23 by CHINTAN Ryder) History of total left hip replacement History of colonoscopy H/O total hip arthroplasty H/O left knee surgery Family History Father CVD (cardiovascular disease) Hypertension Mother Alzheimer disease Brother Lupus CVD (cardiovascular disease) Sister Lupus Social History Housing: House Are you a primary interior plant caretaker to a significant other at home: No Do you presently have visiting nurse or other home services: No Alcohol intake: current Patient Tobacco Use Status: Former Tobacco user Tobacco use type: Cigarette Years Smoked: quit 1986, smokes pot - e-Cigarette/Vaping Use: Never Used Second Hand Smoke Exposure: No service: No Current occupational status: employed 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 1. Little interest or pleasure in doing things: not at all 2. Feeling down, depressed, or hopeless: not at all 3. Trouble falling or staying asleep, or sleeping too much: not at all 4. Feeling tired or having little energy: not at all 5. Poor appetite or overeating: not at all 6. Feeling bad about yourself - or that you are a failure or have let yourself or your family down: not at all 7. Trouble concentrating on things, such as reading the newspaper or watching television: not at all 8. Moving or speaking so slowly that other people could have noticed. Or the opposite - being so fidgety or restless that you have been moving around a lot more than usual: not at all 9. Thoughts that you would be better off or of hurting yourself in some way: not at all Total score: 0 Depression Screening Interpretation: Negative Depression Screening Done: Yes Source: Developed by Drs. Gus Akbar, Osito Dooley and colleagues, with an educational alisia from [employer]. Thrive Questionnaire Date Thrive assessed: 12/04/23 AUDIT C Alcohol Use Questionnaire (AUDIT-C) 1. How often do you have a drink containing alcohol?: Monthly or less 2. How many drinks containing alcohol do you have on a typical day when you are drinking?: 1 or 2 3. How often do you have six or more drinks on one occasion?: Never Total Score: 1 Score Reviewed/Action Taken: No PHILIP-7 AMB Questionnaire PHILIP-7 Date PHILIP - 7 assessed: 12/04/23 Source: Developed by Drs. Gus Akbar, Naomy Mathis, Osito Wooten and colleagues, with an educational alisia from [employer]. Physical exam (Primary Care) Vital Signs: Last Vital Signs Pulse 68 03/12/24 10:16 BP 142/88 H 03/12/24 10:16 Pulse Ox 97 03/12/24 10:16 Oxygen Delivery Method Room Air 03/12/24 10:16 BMI result Body Mass Index 34.6 Tobacco/Smoking Status: Tobacco use Status Tobacco use date assessed 12/04/23 03/12/24 10:17 Patient Tobacco Use Status Former Tobacco user 03/12/24 10:17 Tobacco use type Cigarette 03/12/24 10:17 e-Cigarette/Vaping Use Never Used 03/12/24 10:17 PHQ-9: PHQ-9 Score PHQ-9: Total score 0 03/12/24 10:30 Depression Screening Interpretation: Negative Thrive Assessment: Date of Thrive Assessment Date Thrive assessed 12/04/23 03/12/24 10:17 Const General: alert; No acute distress Eyes Conjunctivae: conjunctivae normal Resp Auscultation: clear to auscultation bilaterally Cardio Rate: regular rate Rhythm: regular rhythm GI Inspection: Yes normal to inspection Extrem General: Yes normal to inspection and No edema Results AMB Hemoglobin A1c AMB Hemoglobin A1c 5.2 % Last Edit by CHINTAN Man on 03/12/24 10:34 Assessment and Plan Assessment & Plan (1) Type 2 diabetes mellitus with hyperglycemia: Comment: [facility] Code(s): E11.65 - Type 2 diabetes mellitus with hyperglycemia Plan: Decrease the amount of carbohydrate intake, pasta, bread, rice and potatoes are all sugar and that is aside from all the sweet stuff, remember that fruits are good but they are Sweet also. Hemoglobin A1c goal of less than 6.5. Patient has done really good with the glipizide and metformin. Cautioned patient hypoglycemic episodes. (2) Hypertension: Code(s): I10 - Essential (primary) hypertension Qualifiers: Hypertension type: essential hypertension Qualified Code(s): I10 - Essential (primary) hypertension Plan: Continue with blood pressure medication. Decrease salt intake and exercise presently on losartan 50 mg once a day metoprolol 100 mg once a day and amlodipine 10 mg once a day noted blood pressure remains to be elevated and so advised to increase losartan to 100 mg once a day (3) Hypercholesterolemia: Code(s): E78.00 - Pure hypercholesterolemia, unspecified Plan: Avoid fried foods, chicken skin, eggs, butter margarine, pastries and meat. Be it pork or beef they have a lot of cholesterol August 2023 last blood work on atorvastatin 10 mg once a day LDL goal of less than 100 and triglyceride of less than 150 (4) Obesity: Code(s): E66.9 - Obesity, unspecified Qualifiers: Obesity type: due to excess calories Obesity classification: adult class 2 (BMI 35 - 39.9) Serious obesity comorbidity presence: with serious comorbidity Body mass index: BMI 36.0-36.9 Qualified Code(s): E66.01 - Morbid (severe) obesity due to excess calories; Z68.36 - Body mass index [BMI] 36.0-36.9, adult Plan: Diet and exercise (5) BPH (benign prostatic hyperplasia): Code(s): N40.0 - Benign prostatic hyperplasia without lower urinary tract symptoms Qualifiers: Lower urinary tract symptom presence: symptoms present Lower urinary tract symptom detail: urinary frequency Qualified Code(s): N40.1 - Benign prostatic hyperplasia with lower urinary tract symptoms; R35.0 - Frequency of micturition Plan: Continue with tamsulosin, doxazosin and tadalafil (6) GERD (gastroesophageal reflux disease): Code(s): K21.9 - Gastro-esophageal reflux disease without esophagitis Qualifiers: Esophagitis presence: without esophagitis Qualified Code(s): K21.9 - Gastro-esophageal reflux disease without esophagitis Plan: Avoid the foods that causes that usually spicy foods, tomato products, juices, coffee, soda and foods that your sensitive to. After eating do not lie down, allow 3-4 hours before in lie down. And keep the head of bed above 30 degrees to avoid the acid from going up. Orders: Orders AMB Hemoglobin A1c Today Z13.9 - Encounter for screening, unspecified Medications: Changed From losartan 50 mg PO DAILY 90 tabs 1RF I10 - Essential (primary) hypertension To losartan 100 mg PO DAILY 30 days 30 tabs 3RF I10 - Essential (primary) hypertension Coding Level of Care Code Est Pt Level 4 (69619) Diagnoses Type 2 diabetes mellitus with hyperglycemia E11.65 Essential hypertension I10 Hypertension type: essential hypertension Hypercholesterolemia E78.00 Class 2 severe obesity due to excess calories with serious comorbidity and body mass index (BMI) of 36.0 to 36.9 in adult E66.01; Z68.36 Obesity type: due to excess calories Obesity classification: adult class 2 (BMI 35 - 39.9) Serious obesity comorbidity presence: with serious comorbidity Body mass index: BMI 36.0-36.9 Benign prostatic hyperplasia with urinary frequency N40.1; R35.0 Lower urinary tract symptom presence: symptoms present Lower urinary tract symptom detail: urinary frequency Gastroesophageal reflux disease without esophagitis K21.9 Esophagitis presence: without esophagitis Additional Codes PHQ-9 - 04324 - PHQ-9 Billing: ([id number])
== END 2024-03-12 10:39 | disposition home or self-care (01) ==
PROVIDERS: PCP Internal Medicine; Visit Provider Internal Medicine
DX: E11.65 Type 2 diabetes mellitus with hyperglycemia (principal); E66.01 Morbid (severe) obesity due to excess calories; I10 Essential (primary) hypertension; Z68.36 Body mass index [BMI] 36.0-36.9, adult; E78.00 Pure hypercholesterolemia, unspecified; N40.1 Benign prostatic hyperplasia with lower urinary tract symptoms; R35.0 Frequency of micturition; K21.9 Gastro-esophageal reflux disease without esophagitis
CPT/HCPCS: 83036; 99214

== ENCOUNTER 2024-08-04 09:38 | Outpatient (AMB) | payer OTHER, SELFPAY ==
[2024-08-04 09:46] VITALS: BP 146/74; PULSE 62; O2SAT 97; BMI 35.3
--- NOTE | 2024-08-04 09:46 | A.OFFPC_ITS ---
Vital Signs 08/04/24 09:46 08/04/24 10:07 Height 5 ft 11 in Weight 253 lb BMI 35.3 BP 146/74 H 136/74 Blood Pressure Location Lt brachial Lt brachial Position Sitting Sitting Pulse 62 Pulse Source Pulse Oximeter Pulse Oximetry (%) 97 Oxygen Delivery Method Room Air Intake Visit Reasons: 3mth f/u Reproduction Production Manager Required: No Accompanied by: Self / Same As Patient Allergies enalaprilat [From VASOTEC] Allergy (Severe, Verified 08/04/24 09:49) SWELLING Tobacco use date assessed: 12/04/23 Fall risk assessment: No Falls in past year Last assessed Fall Risk: 08/04/24 Dental Screening Dental Screen Date: 03/12/24 HPI 3mth f/u HPI Details 64-year-old obese male()noted 5 lb weigh t gain with controlled diabetes mellitus hypertension hypercholesterolemia BPH GERD coming in for follow-up. Last seen in 03/24/2024. Patient's colonoscopy is up-to-date January 2022 with tubular adenoma. deny hypoglycemia and decline chnaging med but aware of hypoglycemia. also need [facility] Medical History (Updated 10/02/23 @ 11:39 by VISH Lopez) Osteoarthritis of left hip Preoperative clearance Elevated blood sugar Hearing loss in right ear On beta hope at home Tubular adenoma of colon Mastoiditis Degenerative disc disease, cervical Hip osteoarthritis GERD (gastroesophageal reflux disease) BPH (benign prostatic hyperplasia) Erectile dysfunction Obesity Hypercholesterolemia Gout Hypertension Surgical History (Updated 10/02/23 @ 11:23 by CHINTAN Ryder) History of total left hip replacement History of colonoscopy H/O total hip arthroplasty H/O left knee surgery Family History Father CVD (cardiovascular disease) Hypertension Mother Alzheimer disease Brother Lupus CVD (cardiovascular disease) Sister Lupus Social History Housing: House Are you a primary patient care specialist to a significant other at home: No Do you presently have visiting nurse or other home services: No Alcohol intake: current Patient Tobacco Use Status: Former Tobacco user Tobacco use type: Cigarette Years Smoked: quit 1986, smokes pot - e-Cigarette/Vaping Use: Never Used Second Hand Smoke Exposure: No service: No Current occupational status: employed 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 Gus Akbar, Naomy Mathis, Osito Wooten and colleagues, with an educational alisia from [employer]. Physical exam (Primary Care) Vital Signs: Last Vital Signs Pulse 62 08/04/24 09:46 BP 146/74 H 08/04/24 09:46 Pulse Ox 97 08/04/24 09:46 Oxygen Delivery Method Room Air 08/04/24 09:46 BMI result Body Mass Index 35.3 Tobacco/Smoking Status: Tobacco use Status Tobacco use date assessed 12/04/23 08/04/24 09:46 Patient Tobacco Use Status Former Tobacco user 08/04/24 09:46 Tobacco use type Cigarette 08/04/24 09:46 e-Cigarette/Vaping Use Never Used 08/04/24 09:46 Thrive Assessment: Date of Thrive Assessment Date Thrive assessed 12/04/23 08/04/24 09:46 Const General: alert; No acute distress Eyes Conjunctivae: conjunctivae normal Resp Auscultation: clear to auscultation bilaterally Cardio Rate: regular rate Rhythm: regular rhythm GI Inspection: Yes normal to inspection Extrem General: Yes normal to inspection and No edema Results AMB Hemoglobin A1c AMB Hemoglobin A1c 5.6 % Last Edit by Ledy Khalil CMA on 08/04/24 09:55 Results Reviewed Results Reviewed: Laboratory Last Values Hgb A1c (Clinic) 5.6 % (4.0-6.0) 08/04/24 09:48 Assessment and Plan Assessment & Plan (1) Type 2 diabetes mellitus with hyperglycemia: Comment: [facility] Code(s): E11.65 - Type 2 diabetes mellitus with hyperglycemia Plan: Decrease the amount of carbohydrate intake, pasta, bread, rice and potatoes are all sugar and that is aside from all the sweet stuff, remember that fruits are good but they are Sweet also. Hemoglobin A1c goal of less than 6.5. Patient is on glipizide 5 mg once a day metformin 500 mg twice a day (2) Hypertension: Code(s): I10 - Essential (primary) hypertension Qualifiers: Hypertension type: essential hypertension Qualified Code(s): I10 - Essential (primary) hypertension Plan: Continue with blood pressure medication. Decrease salt intake and exercise patient takes metoprolol 100 mg once a day losartan 100 mg once a day amlodipine 10 mg once a day (3) Hypercholesterolemia: Code(s): E78.00 - Pure hypercholesterolemia, unspecified Plan: Avoid fried foods, chicken skin, eggs, butter margarine, pastries and meat. Be it pork or beef they have a lot of cholesterol LDL goal of less than 100 and triglyceride of less than 150. Patient's last blood work was in August 2023 on atorvastatin 10 mg once a day (4) BPH (benign prostatic hyperplasia): Code(s): N40.0 - Benign prostatic hyperplasia without lower urinary tract symptoms Qualifiers: Lower urinary tract symptom presence: symptoms present Lower urinary tract symptom detail: urinary frequency Qualified Code(s): N40.1 - Benign prostatic hyperplasia with lower urinary tract symptoms; R35.0 - Frequency of micturition Plan: Continue with doxazosin and tamsulosin (5) Obesity (BMI 30-39.9): Code(s): E66.9 - Obesity, unspecified Plan: Diet and exercise Orders: Orders AMB Hemoglobin A1c Today E11.65 - Type 2 diabetes mellitus with hyperglycemia Comprehensive Met. Panel Today E11.65 - Type 2 diabetes mellitus with hyperglycemia Microalbumin, Random (w Creat) Today E11.65 - Type 2 diabetes mellitus with hyperglycemia Prostate Specific Antigen Scr Today E11.65 - Type 2 diabetes mellitus with hyperglycemia Complete Blood Count Auto Diff Today E11.65 - Type 2 diabetes mellitus with hyperglycemia Creatinine Urine Today E11.65 - Type 2 diabetes mellitus with hyperglycemia Lipid Panel Today E11.65 - Type 2 diabetes mellitus with hyperglycemia, E78.00 - Pure hypercholesterolemia, unspecified Thyroid Stimulating Hormone Today E11.65 - Type 2 diabetes mellitus with hyperglycemia Free T4 (Free Thyroxine) Today E11.65 - Type 2 diabetes mellitus with hyperglycemia Vitamin B12 and Folate Today E11.65 - Type 2 diabetes mellitus with h yperglycemia Hemoglobin A1c Today E11.65 - Type 2 diabetes mellitus with hyperglycemia Medications: Refilled [id number]-GC 3.5-10,000-1 mg/mL-unit/mL-% 4 drps otic (ears) Q8H 10 days 10 mL 1RF H66.90 - Otitis media, unspecified, unspecified ear Coding Level of Care Code Est Pt Level 4 (75059) Complex EM visit Add On G2211 Diagnoses Type 2 diabetes mellitus with hyperglycemia E11.65 Essential hypertension I10 Hypertension type: essential hypertension Hypercholesterolemia E78.00 Benign prostatic hyperplasia with urinary frequency N40.1; R35.0 Lower urinary tract symptom presence: symptoms present Lower urinary tract symptom detail: urinary frequency Obesity (BMI 30-39.9) E66.9
[2024-08-04 10:07] VITALS: BP 136/74
== END 2024-08-04 10:15 | disposition home or self-care (01) ==
PROVIDERS: PCP Internal Medicine; Visit Provider Internal Medicine
DX: E11.65 Type 2 diabetes mellitus with hyperglycemia (principal); I10 Essential (primary) hypertension; Z68.35 Body mass index [BMI] 35.0-35.9, adult; E66.9 Obesity, unspecified; E78.00 Pure hypercholesterolemia, unspecified; N40.1 Benign prostatic hyperplasia with lower urinary tract symptoms; R35.0 Frequency of micturition

== ENCOUNTER → 2024-08-04 09:38 | Outpatient (BNVA) | payer OTHER, SELFPAY | PROVIDERS: PCP Internal Medicine; Visit Provider Internal Medicine | DX: E11.65 Type 2 diabetes mellitus with hyperglycemia (principal); I10 Essential (primary) hypertension; E78.00 Pure hypercholesterolemia, unspecified; N40.1 Benign prostatic hyperplasia with lower urinary tract symptoms; R35.0 Frequency of micturition; E66.9 Obesity, unspecified; Z68.35 Body mass index [BMI] 35.0-35.9, adult; Z79.84 Long term (current) use of oral hypoglycemic drugs; Z79.899 Other long term (current) drug therapy | CPT/HCPCS: 83036 ==

== ENCOUNTER 2025-01-09 06:03 | Outpatient (REF) | payer BC, SELFPAY ==
--- OUTSIDE RECORDS SUMMARY | 2025-01-09 06:06 | XMS_ITS | Patient Health Record ---
Author Organization [facility] Address [address] [place] [address] Care Team Providers Care Manager Of Internal Name Role Phone Elia Davies MD Primary Care Provider Gus Parker [phone] Allergies Allergen (clinical drug ingredient) Drug/Non Drug Allergy documented on EMR Reaction Allergy Type Onset Date Status enalapril Vasotec Unknown Drug Allergy Active Reason For Referral No Information Medications Medication SIG (Take, Route, Frequency, Duration) Notes Start Date End Date Status Tadalafil 20 MG TAKE 1 TABLET BY KAREN TH DIRECTED Oral for 30 Active Meloxicam 15 MG TAKE 1 TABLET BY KAREN TH EVERY DAY Oral for 90 Active Tamsulosin HCl 0.4 MG TAKE 1 CAPSULE BY MOUTH EVERY DAY FOR 90 DAYS Oral for 90 Active Doxazosin Mesylate 4 MG Oral for 90 Active Metoprolol Succinate ER 100 MG TAKE 1 TABLET BY MOUTH EVERY DAY Oral for 90 Active lipitor Active Atorvastatin Calcium 10 MG TAKE 1 TABLET BY MOUTH EVERY DAY Oral for 90 Active Aspir-81 81 MG 1 tablet Orally Once a day Active Allopurinol 100 MG Oral for 90 Active Sodium Fluoride 5000 PPM 1.1 % Dental for 30 Active Indapamide 2.5 MG 1 tablet in the morn ing Orally Once a day Active Chlorhexidine Gluconate 0.12 % Mouth/Throat for 16 Active Cardura Active Doxycycline Hyclate 20 MG TAKE 1 TABLET BY MOUTH EVERY 12 HOURS Oral for 90 Active Norvasc Active amLODIPine Besylate 10 MG Oral for 90 Active toprol Active Immunizations Vaccine Route Administration Date Status Comme nts Influenza Unknown 07/13/2021 Administered Problems Problem Type SNOMED Code ICD Code Onset Dates Problem Status W/U Status Risk Notes Problem 460030455 Encounter for screening for malignant neoplasm of colon (Z12.11) Active confirmed Problem 812474104 History of adenomatous polyp of colon (Z86.010) Active confirmed Problem Screening for malignant neoplasm of rectum (103821289) Encounter for screening for malignant neoplasm of rectum (Z12.12) Active confirmed Problem 82967535 Preprocedural examination (Z01.818) Active confirmed Problem Diverticulosis of colon (819240892) Diverticulosis of colon (K57.30) Active confirmed Plan Of Treatment Pending Test Test Name Order Date Pathology 01/27/2022 Future Test Test Name Order Date COLONOSCOPY 12/22/2015 COLONOSCOPY 12/14/2021 Insurance Providers Payer Name Payer Address Payer Phone Subscriber Number Group Number Insured Name Patient Relationship to Insured Coverage Start Date Coverage End Date [facility] [address] [place], [place] [phone] [id number] [place] Self - patient is the insured Medical (General) History Medical History History ICD Code Screening colonoscopy 2009--3 tubular adenomas removed, mild sigmoid diverticulosis, small internal hemorrhoids UTI HTN Denies IN,DM,CVA,Lung disease,renal dise ase Hyperlipidemia Loss of hearing in right ear Neg colonoscopy in 03/2016 except hyperpl astic polyps Gout BPH Surgical History Surgery Date(Month/Year) Left quadriceps tear 12/2012 Right hip replacement 2018
[2025-01-09 10:09] LABS: MANUAL DIFF FLAG NO
[2025-01-09 10:24] LABS: Basophils Percent Auto 0.5 % (0-2); Eosinophils Absolute Auto 0.3 X10*3/uL (0.0-0.4); Eosinophils Percent Auto 3.7 % (0-4); Hematocrit 42.1 % (42.0-52.0); Hemoglobin 15.3 g/dl (14.0-18.0); Imm Gran Abs Auto 0.02 X10*3/uL (0.00-0.03); Imm Gran Pct Auto 0.3 % (0.0-0.4); Lymphocytes Absolute Auto 1.7 X10*3/uL (1.2-4.9); Lymphocytes Percent Auto 21.5 % (20-40); Mean Corpuscular HGB Conc 36.3 g/dl (31.0-36.0); Mean Corpuscular Hemoglobin 31.7 pg (27.0-33.0); Mean Corpuscular Volume 87.3 fL (80.0-98.0); Mean Platelet Volume 10.7 fL (9.4-12.4); Monocytes Absolute Auto 0.5 X10*3/uL (0.1-1.2); Monocytes Percent Auto 6.7 % (2-11); Neutrophils Absolute Auto 5.3 x10*3/uL (2.0-8.3); Neutrophils Percent Auto 67.3 % (45-73); Platelet Count 201 X10*3/uL (160-400); Red Blood Count 4.82 X10*6/uL (4.60-5.80); White Blood Count 7.9 X10*3/uL (4.8-10.8)
[2025-01-09 10:39] LABS: Alanine Aminotransferase 32 U/L (0-40); Albumin Level 4.3 g/dL (3.5-5.0); Alkaline Phosphatase 57 U/L (39-117); Anion Gap 12 (12-20); Aspartate Amino Transferase 33 U/L (5-37); Bilirubin Total 0.8 mg/dL (0.0-1.0); Blood Urea Nitrogen 16 mg/dL (9-16); Calcium 9.1 mg/dL (8.4-10.2); Carbon Dioxide 26 mmol/L (22-29); Chloride 107 mmol/L (96-108); Cholesterol 144 mg/dL (<200); Estimated Glomerular Filt Rate > 60; Glucose Random 127 mg/dL (60-115); HDL Cholesterol 40 mg/dL (>40); LDL Cholesterol Calculated 73 mg/dL (<100); Potassium 3.9 mmol/L (3.3-5.1); Sodium 141 mmol/L (135-145); Total Protein 7.7 g/dL (6.5-8.0); Triglycerides 158 mg/dL (<150)
[2025-01-09 10:44] LABS: Estimated Average Glucose 100 mg/dL; Hemoglobin A1c % 5.1 % (<6.0)
[2025-01-09 11:00] LABS: Free T4 (Free Thyroxine) 1.05 ng/dL (0.71-1.85); Thyroid Stimulating Hormone 1.73 uIU/mL (0.32-4.0)
[2025-01-09 11:05] LABS: Folate 14.3 ng/mL (> or = 4.0); Prostate Specific Antigen Scr 0.63 ng/mL (<0.05-4.0); Vitamin B12 569 pg/mL (200-900)
[2025-01-09 11:07] LABS: Creatinine Urine 229.27 mg/dL; Microalbum/Creatinine Ratio Ur 5.6 ug/mg cr (<30)
== END 2025-01-09 06:04 | disposition home or self-care (01) ==
LOC: HO.HMGCLDS 06:03
PROVIDERS: PCP Internal Medicine; Visit Provider Internal Medicine
DX: E11.65 Type 2 diabetes mellitus with hyperglycemia (principal); E78.00 Pure hypercholesterolemia, unspecified; Z12.5 Encounter for screening for malignant neoplasm of prostate
CPT/HCPCS: 36415; 80053; 80061; 82043; 82570; 82607; 82746; 83036; 84153; 84439; 84443; 85025

== ENCOUNTER 2025-01-13 10:06 | Outpatient (AMB) | payer BC, SELFPAY ==
[2025-01-13 10:10] VITALS: BP 130/82; PULSE 61; O2SAT 96; BMI 35.1
--- NOTE | 2025-01-13 10:10 | MHC.PC.OV ---
Vital Signs 01/13/25 10:10 Height 5 ft 11 in Weight 252 lb BMI 35.1 BP 130/82 Blood Pressure Location Lt brachial Position Sitting Pulse 61 Pulse Source Pulse Oximeter Pulse Oximetry (%) 96 Oxygen Delivery Method Room Air Intake Visit Reasons: Annual Exam Tail Dogger Required: No Accompanied by: Self / Same As Patient Allergies enalaprilat [From VASOTEC] Allergy (Severe, Verified 01/13/25 10:10) SWELLING Medication List - Last Reconciled 01/13/25 by Elia Davies MD allopurinol 100 mg PO DAILY amlodipine 10 mg PO DAILY atorvastatin 10 mg PO DAILY blood sugar diagnostic (FreeStyle Lite Strips) As directed check the BS QD blood-glucose meter (FreeStyle Lite Meter kit) As directed cholecalciferol (vitamin D3) 25 mcg PO DAILY clotrimazole 1% 1 appl topical BID 4 weeks doxazosin 4 mg PO DAILY glipizide ER 5 mg PO DAILY lancets (FreeStyle Lancets) As directed check BS QD lidocaine 5% (Lidoderm) 1 patch topical DAILY losartan 100 mg PO DAILY metformin 500 mg PO BID metoprolol succinate ER 100 mg PO DAILY miconazole nitrate 2% (Zeasorb AF) 1 appl topical BID [id number] mcg (Centrum Silver Men) 1 tab PO DAILY naproxen (EC-Naproxen) 500 mg PO BID PRN tadalafil 20 mg PO DIRECTED tamsulosin 0.4 mg PO DAILY 90 days triamcinolone acetonide 0.5% 1 appl topical BID 14 days Tobacco use date assessed: 01/13/25 Fall risk assessment: No Falls in past year Last assessed Fall Risk: 01/13/25 Dental Screening Dental Screen Date: 01/13/25 Did you have a dental visit in the last 12 months?: No Did you have a dental problem in the last 6 months where you did not have access to dental care?: No Was dental information given to patient?: No [facility] Medical History (Updated 01/13/25 @ 10:57 by Elia Davies MD) Osteoarthritis of left hip Preoperative clearance Elevated blood sugar Hearing loss in right ear On beta hope at home Tubular adenoma of colon Mastoiditis Degenerative disc disease, cervical Hip osteoarthritis GERD (gastroesophageal reflux disease) BPH (benign prostatic hyperplasia) Erectile dysfunction Obesity Hypercholesterolemia Gout Hypertension Surgical History History of total left hip replacement History of colonoscopy H/O total hip arthroplasty H/O left knee surgery Family History Father CVD (cardiovascular disease) Hypertension Mother Alzheimer disease Brother Lupus CVD (cardiovascular disease) Sister Lupus Social History (Updated 01/13/25 @ 10:43 by Elia Davies MD) Housing: House Are you a primary wound care center consultant to a significant other at home: No Do you presently have visiting nurse or other home services: No Alcohol intake: current Comment: once Q 2 months 1 beer Patient Tobacco Use Status: Former Tobacco user Tobacco use type: Cigarette Years Smoked: quit 1986, smokes pot - e-Cigarette/Vaping Use: Never Used Second Hand Smoke Exposure: No service: No Current occupational status: employed 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 1. Little interest or pleasure in doing things: not at all 2. Feeling down, depressed, or hopeless: not at all 3. Trouble falling or staying asleep, or sleeping too much: not at all 4. Feeling tired or having little energy: not at all 5. Poor appetite or overeating: not at all 6. Feeling bad about yourself - or that you are a failure or have let yourself or your family down: not at all 7. Trouble concentrating on things, such as reading the newspaper or watching television: not at all 8. Moving or speaking so slowly that other people could have noticed. Or the opposite - being so fidgety or restless that you have been moving around a lot more than usual: not at all 9. Thoughts that you would be better off or of hurting yourself in some way: not at all Total score: 0 Source: Developed by Drs. Gus Akbar, Naomy Mathis, Osito Wooten and colleagues, with an educational alisia from [employer]. Thrive Questionnaire Date Thrive assessed: 01/13/25 I am a: Patient What is your living situation today?: I have a steady place to live Within the past 12 months, did the food you bought not last and you didn't have the money to get more?: Never true Within the past 12 months, did you worry whether your food would run out before you got money to buy more?: Never true Do you have trouble paying for medicines?: No Do you have trouble getting transportation to medical appointments?: No Do you have trouble paying your heating and electricity bill?: No Do you have trouble taking care of your child, family member or friend?: No Do you have trouble with day-to-day activities such as bathing, preparing meals, shopping, managing finances, etc.?: No Are you currently unemployed and looking for a job?: No Are you interested in more education?: No Please select the resources that you would like help with: None Currently or been in a relationship where the following occur: I choose not to answer THRIVE Score: 0 AUDIT C Alcohol Use Questionnaire (AUDIT-C) 1. How often do you have a drink containing alcohol?: Monthly or less 2. How many drinks containing alcohol do you have on a typical day when you are drinking?: 1 or 2 3. How often do you have six or more drinks on one occasion?: Less than monthly Total Score: 2 PHILIP-7 AMB Questionnaire PHILIP-7 Date PHILIP - 7 assessed: 01/13/25 Feeling nervous, anxious, or on edge: 0 = Not at all Not being able to stop or control worryin = Not at all Worrying too much about different things: 0 = Not at all Trouble relaxin = Not at all Being so restless that it is hard to sit still: 0 = Not at all Becoming easily annoyed or irritable: 0 = Not at all Feeling afraid as if something awful might happen: 0 = Not at all Total PHILIP-7 score (0-4 normal; 5-9 mild; 10-14 moderate; 15-21 severe): 0 Source: Developed by Drs. Gus Akbar, Naomy Mathis, Osito Wooten and colleagues, with an educational alisia from [employer]. Review of Systems Const Denies poor appetite and Denies weakness Eyes Denies no additional complaints ENT Reports Normal hearing present, Denies dizziness, Denies nasal congestion, Denies tinnitus and Denies sore throat Card Denies chest pain, Denies syncope, Denies rapid heart rate and Denies dyspnea Resp Denies cough and Denies dyspnea GI Denies change in stool character, Reports constipation, Denies diarrhea, Denies nausea and Denies vomiting Denies dysuria and Denies urinary frequency Neuro Reports Normal hearing present, Denies confusion, Denies dizziness, Denies syncope and Denies weakness Psych Denies confusion Physical exam (Primary Care) Vital Signs: Last Vital Signs Pulse 61 01/13/25 10:10 BP 130/82 01/13/25 10:10 Pulse Ox 96 01/13/25 10:10 Oxygen Delivery Method Room Air 01/13/25 10:10 BMI result Body Mass Index 35.1 Tobacco/Smoking Status: Tobacco use Status Tobacco use date assessed 01/13/25 01/13/25 10:13 Patient Tobacco Use Status Former Tobacco user 01/13/25 10:43 Tobacco use type Cigarette 01/13/25 10:43 e-Cigarette/Vaping Use Never Used 01/13/25 10:43 PHQ-9: PHQ-9 Score PHQ-9: Total score 0 01/13/25 11:04 Thrive Assessment: Date of Thrive Assessment Date Thrive assessed 01/13/25 01/13/25 10:13 Currently or been in a relationship where the following occur: I choose not to answer Const General: No confusion Orientation/consciousness: No confusion HENMT Head: Yes normocephalic Ears: external ears normal and TM's normal bilaterally Face and sinus: Yes normal facial exam Mouth: moist mucous membranes Throat: Yes tonsils normal Eyes Conjunctivae: conjunctivae normal Pupils: Equal, round and reactive pupils present and Pupil accommodation reflex normal Direct Ophthalmoscopy: normal light reflex Neck Neck: No lymphadenopathy Thyroid: Thyroid normal Chest Chest palpation & inspection: normal inspection of the chest Resp Effort & Inspection: normal respiratory effort and no audible wheezes Auscultation: clear to auscultation bilaterally, no crackles, no wheezes and lung sounds not diminished Cardio Rate: regular rate Rhythm: regular rhythm Peripheral pulses: radial pulses present and dorsalis pedis present GI Palpation (GI): no masses Auscultation: normal bowel sounds and normoactive bowel sounds Rectal Exam - Male: Yes deferred Skin General skin exam: no rashes or lesions noted Rashes: no rashes Neuro General: No confusion Cranial nerves: Yes Equal, round and reactive pupils present and Yes Normal hearing present Cognition (Neuro): normal cognition Gait exam (Neuro): Normal gait present Motor exam (neuro): 5/5 motor strength present throughout Deep tendon reflexes (DTR's): Right brachioradialis reflex intensity grade: 2+, Left brachioradialis reflex intensity grade: 2+, Right patellar reflex intensity grade: 2+ and Left patellar reflex intensity grade: 2+ Extrem General: No edema Office Procedures Flu Questionnaire Does the patient have a severe egg allergy?: No Does the patient have severe life threatening allergies?: No Does the patient have a fever or illness today?: No Has the patient ever had Guillain-[place] Syndrome?: No Has the patient ever had any past reaction to a flu shot?: No Immunizations Fluarix Triv [id number] (PF) 45 mcg (15 mcg x 3)/0.5 mL IM syringe Performing Provider: Elia Davies MD Per[facility] [place] Administered by: CHINTAN Jones on 01/13/25 11:05 Dose Route Admin Location Dispensed Lot Number Expiration Date NDC [employer] 0.5 mL IM Left Deltoid 0.5 mL [id number] 05/04/25 [id number] [employer] VIS Given Date VIS Provided VIS Publication Date 01/13/25 Single Vaccine 21 Eligibility Eligibility Date Funding Source Not [facility] Eligible 01/13/25 Private Coding Level of Care Code Est Pt Prev Care >65y(63755) Diagnoses Annual physical exam Z00.00 Obesity (BMI 30-39.9) E66.9 Type 2 diabetes mellitus with hyperglycemia E11.65 Gastroesophageal reflux disease without esophagitis K21.9 Esophagitis presence: without esophagitis Hypercholesterolemia E78.00 Essential hypertension I10 Hypertension type: essential hypertension Benign prostatic hyperplasia with urinary frequency N40.1; R35.0 Lower urinary tract symptom detail: urinary frequency Lower urinary tract symptom presence: symptoms present Tinea pedis B35.3 Right inguinal hernia K40.90 Assessment & Plan Assessment & Plan (1) Annual physical exam: Code(s): Z00.00 - Encounter for general adult medical examination without abnormal findings Category: Medical Plan: Patient is advised to eat healthy, keep well hydrated, keep active and have adequate sleep. (2) Obesity (BMI 30-39.9): Code(s): E66.9 - Obesity, unspecified Category: Medical Plan: Diet and exercise (3) Type 2 diabetes mellitus with hyperglycemia: Comment: [facility] Code(s): E11.65 - Type 2 diabetes mellitus with hyperglycemia Category: Medical Plan: Decrease the amount of carbohydrate intake, pasta, bread, rice and potatoes are all sugar and that is aside from all the sweet stuff, remember that fruits are good but they are Sweet also. Hemoglobin A1c goal of less than 6.5 patient is taking metformin 500 mg twice a day glipizide 5 mg once a day (4) GERD (gastroesophageal reflux disease): Code(s): K21.9 - Gastro-esophageal reflux disease without esophagitis Category: Medical Qualifiers: Esophagitis presence: without esophagitis Qualified Code(s): K21.9 - Gastro-esophageal reflux disease without esophagitis Plan: Avoid the foods that causes that usually spicy foods, tomato products, juices, coffee, soda and foods that your sensitive to. After eating do not lie down, allow 3-4 hours before in lie down. And keep the head of bed above 30 degrees to avoid the acid from going up. (5) Hypercholesterolemia: Code(s): E78.00 - Pure hypercholesterolemia, unspecified Category: Medical Plan: Avoid fried foods, chicken skin, eggs, butter margarine, pastries and meat. Be it pork or beef they have a lot of cholesterol on atorvastatin 10 mg once a day LDL goal of less than 100 and triglyceride of less than 150. (6) Hypertension: Code(s): I10 - Essential (primary) hypertension Category: Medical Qualifiers: Hypertension type: essential hypertension Qualified Code(s): I10 - Essential (primary) hypertension Plan: Continue with blood pressure medication. Decrease salt intake and exercise on amlodipine 10 mg once a day losartan 100 mg once a day metoprolol 100 mg once a day (7) BPH (benign prostatic hyperplasia): Code(s): N40.0 - Benign prostatic hyperplasia without lower urinary tract symptoms Category: Medical Qualifiers: Lower urinary tract symptom detail: urinary frequency Lower urinary tract symptom presence: symptoms present Qualified Code(s): N40.1 - Benign prostatic hyperplasia with lower urinary tract symptoms; R35.0 - Frequency of micturition Plan: Continue with tamsulosin placed on tadalafil and doxazosin (8) Tinea pedis: Code(s): B35.3 - Tinea pedis Category: Medical (9) Right inguinal hernia: Comment: mild and avoid lifting Code(s): K40.90 - Unilateral inguinal hernia, without obstruction or gangrene, not specified as recurrent Category: Medical Plan History of Present Illness The patient is a 64-year-old male presenting for a routine physical examination and ongoing management of several chronic conditions, including essential hypertension, hypercholesterolemia, benign prostatic hyperplasia, and type 2 diabetes mellitus. Laboratory testing indicates stable diabetes control with a hemoglobin A1c of 5.1% and fasting blood sugar at 127 mg/dL. He is currently prescribed amlodipine, losartan, and metoprolol for blood pressure, and atorvastatin for cholesterol with reported success in achieving target levels. The patient's GERD is maintained through lifestyle modifications and medications, with infrequent heartburn. BPH symptoms are controlled with doxazosin, tadalafil, and tamsulosin. He is currently taking allopurinol for gout. A mild right-sided inguinal hernia was identified without acute symptoms but requires attention during physical activities. Recent eye examination revealed no abnormalities. The patient reports adhering to a healthy lifestyle, including moderate alcohol consumption and no tobacco use. Health Maintenance - Completed eye examination recently with normal findings - Past colonoscopy conducted in January 2022 - Blood pressure is controlled with current medication - LDL cholesterol target achieved with atorvastatin - Hemoglobin A1c at target, indicating good diabetes control - Recommends seasonal flu vaccination (given) - Discussed potential benefits of nasal sprays for nasal congestion - Discussed weight management strategies Social History - Occasionally consumes alcohol, about once every two months, and more frequently in the summer - Former smoker, currently uses only cannabis by smoking, not daily - Previous history of regular exercise and maintenance of a healthy diet - No pets at home - Reports mild obesity, with recent weight check indicating slight reduction from 250 lbs to 249 lbs Review of Systems - Respiratory: Denies shortness of breath, wheezing - Cardiovascular: Denies chest pain, palpitations - Gastrointestinal: Denies nausea, vomiting, reports occasional heartburn - Genitourinary: Reports nocturia twice per night - Musculoskeletal: Denies joint pain - Neurological: Denies dizziness, fainting - General: Denies fever, chills - Dermatological: Reports occasional fungal infection between toes - Eyes: Recent normal examination Physical Exam General: Cooperative, healthy appearing, comfortable, no acute distress and well developed Orientation: Patient oriented x3 Limitations: No limitations Head: Normal to inspection Ears: Hearing grossly normal bilaterally, some ear wax present but no pain Nose: Normal external nose present, patient reports chronic nasal stuffiness Face and sinus: Normal facial exam, no sinus pressure reported Eyes: Appearance normal, both eyes and all related structures, last eye exam about a month ago Neck: Normal visual inspection and Yes full ROM Respiratory: Normal respiratory effort and able to speak in complete sentences. Clear to auscultation bilaterally Cardiovascular: Regular rate and rhythm. Normal S1 and S2 GI: Normal to inspection. Soft to palpation and nontender Skin: No rashes or lesions noted, some swelling in extremities likely due to medication, fungal infection between toes Neuro: Patient oriented x3 Extremities: Normal to inspection, mild inguinal hernia noted, slight swelling in extremities, fungal infection between toes Results - Fasting Blood Sugar: 127 mg/dL, slightly elevated - Hemoglobin A1c: 5.1%, within normal limits - LDL Cholesterol: 73 mg/dL, achieved target level - Prostate-Specific Antigen: Good - Urinalysis: No proteinuria Plan The patient will continue current medications for hypertension, cholesterol, and BPH, as the management plan is effective. The diabetes treatment will remain the same, with metformin and glipizide, as diabetes control is acceptable. Recommendations include initiating a nasal spray for congestion and providing a prescription for topical treatment for foot fungus. Surveillance of the mild inguinal hernia is needed with precautions advised. Flu vaccine administered today as part of the preventive care strategy. Lifestyle suggestions for weight management and reduced cannabis smoking are emphasized for future health benefits. Patient was informed and verbally consented to the use of an ambient scribe for clinic note documentation during this visit. Discussion Notes I discussed with the patient the ongoing management of their chronic conditions, emphasizing the importance of maintaining control over hypertension, cholesterol levels, and diabetes, which are well-managed with current medications. We reviewed the potential cardiovascular risks associated with smoking cannabis and the recommendation to moderate its use. Additionally, we covered the necessity for weight management and exercise. We discussed nasal sprays for nasal congestion and topical treatments for a fungal foot infection. The flu vaccine was administered today as part of his preventive care. I advised the patient on the importance of avoiding heavy lifting due to the mild hernia, as it may exacerbate. Suggestions were made for follow-ups every six months, with immediate consultation if the hernia or any other symptoms worsen. Patient Instructions - Continue current medications for blood pressure, cholesterol, diabetes, and BPH. - Use nasal spray as prescribed for nasal congestion. - Apply the prescribed cream for foot fungus daily. - Avoid heavy lifting to prevent aggravating the inguinal hernia. - Monitor for any worsening symptoms and seek medical attention if needed. - Engage in regular exercise and weight management. - Reduce smoking cannabis due to potential cardiovascular risks. - Follow up in six months, or sooner if symptoms change. - Received a flu vaccination today. Orders: Orders Influenza [id number] Immunization Today Z23 - Encounter for immunization Medications: New fluticasone propionate 50 mcg/actuation (Children's Flonase Allergy Relief) administer into each nostril 2 sprays intranasal DAILY 16 grams 7RF B35.3 - Tinea pedis miconazole nitrate 2% (Zeasorb AF) 1 appl topical BID 85 grams 0RF B35.3 - Tinea pedis
--- OUTSIDE RECORDS SUMMARY | 2025-01-13 11:51 | XMS_ITS | Patient Health Record ---
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 Name Role Phone Elia Davies MD Primary Care Provider u[facility] Parker [phone] Allergies Allergen (clinical drug ingredient) Drug/Non Drug [...] Problem Status W/U Status Risk Notes Problem [id number] Encounter for screening for malignant neoplasm of colon (Z12.11) Active confirmed Problem [id number] History of adenomatous polyp of colon (Z86.010) Active confirmed Problem Screening for malignant neoplasm of rectum (069931918) Encounter for screening for malignant neoplasm of rectum (Z12.12) Active confirmed Problem [id number] Preprocedural examination (Z01.818) Active confirmed Problem Diverticulosis of colon (761362132) Diverticulosis of colon (K57.30) Active confirmed Plan Of Treatment Pending Test Test Name Order Date Pathology 01/27/2022 Future Test Test Name Order Date COLONOSCOPY 12/22/2015 COLONOSCOPY 12/14/2021 Insurance Providers Payer Name Payer Address Payer Phone Subscriber Number Group Number Insured Name Patient Relationship to Insured Coverage Start Date Coverage End Date [facility] [address] [place], [place] [phone] [id number] [place] Self - patient is the insured Medical (General) History Medical History History ICD Code Screening colonoscopy 2009--3 tubular adenomas removed, mild sigmoid diverticulosis, small internal hemorrhoids UTI HTN Denies HI,DM,CVA,Lung disease,renal dise ase Hyperlipidemia Loss of hearing in right ear Neg colonoscopy in 03/2016 except hyperpl astic polyps Gout BPH Surgical History Surgery Date(Month/Year) Left quadriceps tear 12/2012 Right hip replacement 2018
== END 2025-01-13 11:09 | disposition home or self-care (01) ==
LOC: HO.HMCH 10:07
PROVIDERS: PCP Internal Medicine; Visit Provider Internal Medicine
DX: Z00.00 Encounter for general adult medical examination without abnormal findings (principal); E66.9 Obesity, unspecified; Z68.35 Body mass index [BMI] 35.0-35.9, adult; E11.65 Type 2 diabetes mellitus with hyperglycemia; K21.9 Gastro-esophageal reflux disease without esophagitis; E78.00 Pure hypercholesterolemia, unspecified; I10 Essential (primary) hypertension; N40.1 Benign prostatic hyperplasia with lower urinary tract symptoms; R35.0 Frequency of micturition; B35.3 Tinea pedis; K40.90 Unilateral inguinal hernia, without obstruction or gangrene, not specified as recurrent; Z23 Encounter for immunization

== ENCOUNTER → 2025-01-13 10:06 | Outpatient (BNVA) | payer BC, SELFPAY | PROVIDERS: PCP Internal Medicine; Visit Provider Internal Medicine | DX: Z00.00 Encounter for general adult medical examination without abnormal findings (principal); Z23 Encounter for immunization; E66.9 Obesity, unspecified; Z68.35 Body mass index [BMI] 35.0-35.9, adult; E11.65 Type 2 diabetes mellitus with hyperglycemia; K21.9 Gastro-esophageal reflux disease without esophagitis; E78.00 Pure hypercholesterolemia, unspecified; I10 Essential (primary) hypertension; N40.1 Benign prostatic hyperplasia with lower urinary tract symptoms; R35.0 Frequency of micturition; B35.3 Tinea pedis; K40.90 Unilateral inguinal hernia, without obstruction or gangrene, not specified as recurrent; Z79.84 Long term (current) use of oral hypoglycemic drugs; Z79.899 Other long term (current) drug therapy | CPT/HCPCS: 90471; 90656; 96127 ==

== ENCOUNTER 2025-07-16 09:53 | Outpatient (AMB) | payer BC, SELFPAY ==
--- NOTE | 2025-07-16 09:56 | A.OFFPC_ITS ---
Vital Signs 07/16/25 10:01 Height 5 ft 11 in Weight 255 lb 4 oz BMI 35.6 BP 138/74 Blood Pressure Location Lt brachial Position Sitting Pulse 73 Pulse Source Pulse Oximeter Temp 97.3 F Temp Source Temporal Artery Scan Pulse Oximetry (%) 98 Oxygen Delivery Method Room Air Intake Visit Reasons: DM Allergies enalaprilat (From VASOTEC) Allergy (Severe, Verified 07/16/25 10:15) SWELLING Medication List - Last Reconciled 07/16/25 by Elia Davies MD allopurinol 100 mg PO DAILY amlodipine 10 mg PO DAILY atorvastatin 10 mg PO DAILY blood sugar diagnostic (FreeStyle Lite Strips) As directed check the BS QD blood-glucose meter (FreeStyle Lite Meter kit) As directed cholecalciferol (vitamin D3) 25 mcg PO DAILY clotrimazole 1% 1 appl topical BID 4 weeks doxazosin 4 mg PO DAILY fluticasone propionate 50 mcg/actuation (Children's Flonase Allergy Relief) 2 sprays intranasal DAILY glipizide ER 5 mg PO DAILY lancets (FreeStyle Lancets) As directed check BS QD lidocaine 5% (Lidoderm) 1 patch topical DAILY losartan 100 mg PO DAILY metformin 500 mg PO BID metoprolol succinate ER 100 mg PO DAILY miconazole nitrate 2% (Zeasorb AF) 1 appl topical BID miconazole nitrate 2% (Zeasorb AF) 1 appl topical BID [id number] mcg (Centrum Silver Men) 1 tab PO DAILY naproxen (EC-Naproxen) 500 mg PO BID PRN tadalafil 20 mg PO DIRECTED tamsulosin 0.4 mg PO DAILY 90 days triamcinolone acetonide 0.5% 1 appl topical BID 14 days Tobacco use date assessed: 07/16/25 Fall risk assessment: No Falls in past year Last assessed Fall Risk: 07/16/25 Dental Screening Dental Screen Date: 07/16/25 Did you have a dental visit in the last 12 months?: No Did you have a dental problem in the last 6 months where you did not have access to dental care?: No Was dental information given to patient?: Patient has dentist [facility] Medical History Osteoarthritis of left hip Preoperative clearance Elevated blood sugar Hearing loss in right ear On beta hope at home Tubular adenoma of colon Mastoiditis Degenerative disc disease, cervical Hip osteoarthritis GERD (gastroesophageal reflux disease) BPH (benign prostatic hyperplasia) Erectile dysfunction Obesity Hypercholesterolemia Gout Hypertension Surgical History History of total left hip replacement History of colonoscopy H/O total hip arthroplasty H/O left knee surgery Family History Father CVD (cardiovascular disease) Hypertension Mother Alzheimer disease Brother Lupus CVD (cardiovascular disease) Sister Lupus Social History Housing: House Are you a primary wound care coordinator to a significant other at home: No Do you presently have visiting nurse or other home services: No Alcohol intake: current Comment: once Q 2 months 1 beer Patient Tobacco Use Status: Former Tobacco user Tobacco use type: Cigarette Years Smoked: quit 1986, smokes pot - e-Cigarette/Vaping Use: Never Used Second Hand Smoke Exposure: No service: No Current occupational status: employed 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 1. Little interest or pleasure in doing things: not at all 2. Feeling down, depressed, or hopeless: not at all 3. Trouble falling or staying asleep, or sleeping too much: not at all 4. Feeling tired or having little energy: not at all 5. Poor appetite or overeating: not at all 6. Feeling bad about yourself - or that you are a failure or have let yourself or your family down: not at all 7. Trouble concentrating on things, such as reading the newspaper or watching television: not at all 8. Moving or speaking so slowly that other people could have noticed. Or the opposite - being so fidgety or restless that you have been moving around a lot more than usual: not at all 9. Thoughts that you would be better off or of hurting yourself in some way: not at all Total score: 0 Source: Developed by Drs. Gus Akbar, Naomy Osito Bran and colleagues, with an educational alisia from [employer]. Thrive Questionnaire Date Thrive assessed: 01/13/25 I am a: Patient What is your living situation today?: I have a steady place to live Within the past 12 months, did the food you bought not last and you didn't have the money to get more?: Never true Within the past 12 months, did you worry whether your food would run out before you got money to buy more?: Never true Do you have trouble paying for medicines?: No Do you have trouble getting transportation to medical appointments?: No Do you have trouble paying your heating and electricity bill?: No Do you have trouble taking care of your child, family member or friend?: No Do you have trouble with day-to-day activities such as bathing, preparing meals, shopping, managing finances, etc.?: No Are you currently unemployed and looking for a job?: No Are you interested in more education?: No Please select the resources that you would like help with: None Currently or been in a relationship where the following occur: I choose not to answer THRIVE Score: 0 AUDIT C Alcohol Use Questionnaire (AUDIT-C) 1. How often do you have a drink containing alcohol?: Monthly or less 2. How many drinks containing alcohol do you have on a typical day when you are drinking?: 1 or 2 3. How often do you have six or more drinks on one occasion?: Never Total Score: 1 PHILIP-7 AMB Questionnaire PHILIP-7 Date PHILIP - 7 assessed: 01/13/25 Feeling nervous, anxious, or on edge: 0 = Not at all Not being able to stop or control worryin = Not at all Worrying too much about different things: 0 = Not at all Trouble relaxin = Not at all Being so restless that it is hard to sit still: 0 = Not at all Becoming easily annoyed or irritable: 0 = Not at all Feeling afraid as if something awful might happen: 0 = Not at all Total PHILIP-7 score (0-4 normal; 5-9 mild; 10-14 moderate; 15-21 severe): 0 Source: Developed by Drs. Gus Akbar, Osito Dooley and colleagues, with an educational alisia from [employer]. Physical exam (Primary Care) Vital Signs: Last Vital Signs Temp 97.3 F 07/16/25 10:01 Pulse 73 07/16/25 10:01 BP 138/74 07/16/25 10:01 Pulse Ox 98 07/16/25 10:01 Oxygen Delivery Method Room Air 07/16/25 10:01 BMI result Body Mass Index 35.6 Tobacco/Smoking Status: Tobacco use Status Tobacco use date assessed 07/16/25 07/16/25 10:04 Patient Tobacco Use Status Former Tobacco user 07/16/25 09:56 Tobacco use type Cigarette 07/16/25 09:56 e-Cigarette/Vaping Use Never Used 07/16/25 09:56 PHQ-9: PHQ-9 Score PHQ-9: Total score 0 07/16/25 10:30 Thrive Assessment: Date of Thrive Assessment Date Thrive assessed 01/13/25 07/16/25 09:56 Currently or been in a relationship where the following occur: I choose not to answer Const General: alert; No acute distress Eyes Conjunctivae: conjunctivae normal Resp Auscultation: clear to auscultation bilaterally Cardio Rate: regular rate Rhythm: regular rhythm GI Inspection: Yes normal to inspection Extrem General: Yes normal to inspection and No edema Results AMB Hemoglobin A1c AMB Hemoglobin A1c 5.4 % Last Edit by Betty Contreras CMA on 07/16/25 10:20 Results Reviewed Results Reviewed: Laboratory Last Values Hgb A1c (Clinic) 5.4 % (4.0-6.0) 07/16/25 10:17 Coding Level of Care Code Est Pt Level 4 (54730) Complex EM visit Add On G2211 Diagnoses Type 2 diabetes mellitus with hyperglycemia E11.65 Essential hypertension I10 Hypertension type: essential hypertension Hypercholesterolemia E78.00 Obesity (BMI 30-39.9) E66.9 Gastroesophageal reflux disease without esophagitis K21.9 Esophagitis presence: without esophagitis Benign prostatic hyperplasia with urinary frequency N40.1; R35.0 Lower urinary tract symptom detail: urinary frequency Lower urinary tract symptom presence: symptoms present Assessment & Plan Assessment & Plan (1) Type 2 diabetes mellitus with hyperglycemia: Comment: [facility] Code(s): E11.65 - Type 2 diabetes mellitus with hyperglycemia Category: Medical Plan: Decrease the amount of carbohydrate intake, pasta, bread, rice and potatoes are all sugar and that is aside from all the sweet stuff, remember that fruits are good but they are Sweet also. Hemoglobin A1c goal of less than 6.5. Patient is on glipizide at 5 mg once a day metformin 500 mg twice a day (2) Hypertension: Code(s): I10 - Essential (primary) hypertension Category: Medical Qualifiers: Hypertension type: essential hypertension Qualified Code(s): I10 - Essential (primary) hypertension Plan: Continue with blood pressure medication. Decrease salt intake and exercise patient is on losartan at 100 mg once a day amlodipine 10 mg once a day (3) Hypercholesterolemia: Code(s): E78.00 - Pure hypercholesterolemia, unspecified Category: Medical Plan: Avoid fried foods, chicken skin, eggs, butter margarine, pastries and meat. Be it pork or beef they have a lot of cholesterol LDL goal of less than 100 and triglyceride of less than 150. January 2025 last blood work (4) Obesity (BMI 30-39.9): Code(s): E66.9 - Obesity, unspecified Category: Medical Plan: Diet and exercise (5) GERD (gastroesophageal reflux disease): Code(s): K21.9 - Gastro-esophageal reflux disease without esophagitis Category: Medical Qualifiers: Esophagitis presence: without esophagitis Qualified Code(s): K21.9 - Gastro-esophageal reflux disease without esophagitis Plan: Avoid the foods that causes that usually spicy foods, tomato products, juices, coffee, soda and foods that your sensitive to. After eating do not lie down, allow 3-4 hours before in lie down. And keep the head of bed above 30 degrees to avoid the acid from going up. (6) BPH (benign prostatic hyperplasia): Code(s): N40.0 - Benign prostatic hyperplasia without lower urinary tract symptoms Category: Medical Qualifiers: Lower urinary tract symptom detail: urinary frequency Lower urinary tract symptom presence: symptoms present Qualified Code(s): N40.1 - Benign prostatic hyperplasia with lower urinary tract symptoms; R35.0 - Frequency of micturition Plan: Continue with doxazosin tadalafil and tamsulosin Plan History of Present Illness The patient is a 65-year-old male presenting for a follow-up visit and preventative care. He has a history of hypertension, hypercholesterolemia, diabetes mellitus, benign prostatic hyperplasia, and gastroesophageal reflux disease. The patient's last colonoscopy was performed in January 2022, and his last blood work in January 2025 showed normal blood count, electrolytes, and renal function. His blood sugar was 127 mg/dL, but his hemoglobin A1c was within the normal range at 5.4%. Cholesterol levels were noted to be 73 mg/dL with mildly elevated triglycerides, and liver function tests were normal. The patient reports shoulder pain, which he attributes to both an injury at the gym and sleeping on a hard pillow. He experiences sharp burning pain radiating to his hand, which is alleviated by adjusting his sleeping position and taking naproxen. However, taking naproxen on an empty stomach has caused nausea and exacerbated his acid reflux symptoms. The patient denies any episodes of hypoglycemia despite being on glipizide and metformin for diabetes management. He has successfully reduced his soda intake, which has positively impacted his blood sugar levels. The patient experiences mild swelling, which may be related to his medication, amlodipine. He reports occasional dizziness when standing up quickly, which he considers normal. 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 - Exercise: Active, especially at work - Diet: Reduced soda intake Review of Systems - Musculoskeletal: Reports shoulder pain with sharp burning sensation radiating to hand - Gastrointestinal: Reports nausea, exacerbated by naproxen - Neurological: Reports occasional dizziness when standing up quickly - Genitourinary: Denies issues with urination, reports nocturia twice per night - Endocrine: Denies hypoglycemic episodes Physical Exam Results - Labs: Normal blood count, electrolytes, and renal function as of January 2025 - Labs: Blood sugar 127 mg/dL, hemoglobin A1c 5.4% - Labs: Cholesterol 73 mg/dL, mildly elevated triglycerides, normal liver function tests Plan Patient was informed and verbally consented to the use of an ambient scribe for clinic note documentation during this visit. 1. Hypertension The patient's hypertension is currently managed with medication, and his blood pressure is reported to be stable. 2. Hypercholesterolemia The patient's cholesterol levels are well-controlled with current treatment, though triglycerides are mildly elevated. 3. Diabetes Mellitus The patient's diabetes is managed with glipizide and metformin, with no reported hypoglycemic episodes and an A1c of 5.4%. 4. Benign Prostatic Hyperplasia (Bph) The patient reports nocturia twice per night, but no other urinary symptoms are noted. 5. Gastroesophageal Reflux Disease (Gerd) The patient experiences exacerbation of GERD symptoms when taking naproxen on an empty stomach. 6. Preventative Care Preventative care measures include a colonoscopy last performed in January 2022, flu vaccine planned for August, and shingles vaccine available at the pharmacy. Discussion Notes During the visit, we discussed the patient's current management of hypertension, hypercholesterolemia, and diabetes mellitus, emphasizing the importance of medication adherence and lifestyle modifications. We reviewed the patient's recent lab results, which showed well-controlled diabetes and cholesterol levels, and discussed the potential side effects of medications such as naproxen on GERD symptoms. Preventative care measures, including the scheduling of a flu vaccine and the availability of a shingles vaccine at the pharmacy, were also discussed. Patient Instructions - Continue current medications for hypertension, hypercholesterolemia, and diabetes. - Avoid taking naproxen on an empty stomach to prevent nausea and GERD symptoms. - Schedule a flu vaccine for August and consider getting the shingles vaccine from the pharmacy. - Maintain a healthy diet and exercise regularly, reducing soda intake. Orders: Orders Complete Blood Count Auto Diff 6 Months . - Type 2 diabetes mellitus with hyperglycemia Comprehensive Met. Panel 6 Months - Type 2 diabetes mellitus with hyperglycemia Hemoglobin A1c 6 Months . - Type 2 diabetes mellitus with hyperglycemia AMB Hemoglobin A1c Today Z13.9 - Encounter for screening, unspecified Free T4 (Free Thyroxine) 6 Months - Type 2 diabetes mellitus with hyperglycemia Prostate Specific Antigen Scr 6 Months - Type 2 diabetes mellitus with hyperglycemia Lipid Panel 6 Months . - Type 2 diabetes mellitus with hyperglycemia, E78.00 - Pure hypercholesterolemia, unspecified Thyroid Stimulating Hormone 6 Months . - Type 2 diabetes mellitus with hyperglycemia Microalbumin, Random (w Creat) 6 Months . - Type 2 diabetes mellitus with hyperglycemia Creatinine Urine 6 Months . - Type 2 diabetes mellitus with hyperglycemia Vitamin B12 and Folate 6 Months . - Type 2 diabetes mellitus with hyperglycemia
[2025-07-16 10:01] VITALS: BP 138/74; PULSE 73; TEMP 36.3; O2SAT 98; BMI 35.6
--- OUTSIDE RECORDS SUMMARY | 2025-07-16 11:46 | XMS_ITS | Patient Health Record ---
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 Name Role Phone Elia Davies MD Primary Care Provider Gus Parker [phone] Allergies Allergen (clinical drug ingredient) Drug/Non Drug [...] Problem Status W/U Status Risk Notes Problem [id number] Encounter for screening for malignant neoplasm of colon (Z12.11) Active confirmed Problem [id number] History of adenomatous polyp of colon (Z86.010) Active confirmed Problem Screening for malignant neoplasm of rectum (281215849) Encounter for screening for malignant neoplasm of rectum (Z12.12) Active confirmed Problem [id number] Preprocedural examination (Z01.818) Active confirmed Problem Diverticulosis of colon (011608493) Diverticulosis of colon (K57.30) Active confirmed Plan Of Treatment Pending Test Test Name Order Date Pathology 01/27/2022 Future Test Test Name Order Date COLONOSCOPY 12/22/2015 COLONOSCOPY 12/14/2021 Insurance Providers Payer Name Payer Address Payer Phone Subscriber Number Group Number Insured Name Patient Relationship to Insured Coverage Start Date Coverage End Date [facility] [address] [place]ER, [place] [phone] [id number] [place] Self - patient is the insured Medical (General) History Medical History History ICD Code Screening colonoscopy 2009--3 tubular adenomas removed, mild sigmoid diverticulosis, small internal hemorrhoids UTI HTN Denies RI,DM,CVA,Lung disease,renal dise ase Hyperlipidemia Loss of hearing in right ear Neg colonoscopy in 03/2016 except hyperpl astic polyps Gout BPH Surgical History Surgery Date(Month/Year) Left quadriceps tear 12/2012 Right hip replacement 2018
== END 2025-07-16 10:37 | disposition home or self-care (01) ==
LOC: HO.HMCH 09:54
PROVIDERS: PCP Internal Medicine; Visit Provider Internal Medicine
DX: E11.65 Type 2 diabetes mellitus with hyperglycemia (principal); I10 Essential (primary) hypertension; E66.9 Obesity, unspecified; Z68.35 Body mass index [BMI] 35.0-35.9, adult; E78.00 Pure hypercholesterolemia, unspecified; K21.9 Gastro-esophageal reflux disease without esophagitis; N40.1 Benign prostatic hyperplasia with lower urinary tract symptoms; R35.0 Frequency of micturition

== ENCOUNTER → 2025-07-16 09:53 | Outpatient (BNVA) | payer BC, SELFPAY | PROVIDERS: PCP Internal Medicine; Visit Provider Internal Medicine | DX: E11.65 Type 2 diabetes mellitus with hyperglycemia (principal); I10 Essential (primary) hypertension; E78.00 Pure hypercholesterolemia, unspecified; E66.9 Obesity, unspecified; Z68.35 Body mass index [BMI] 35.0-35.9, adult; K21.9 Gastro-esophageal reflux disease without esophagitis; N40.1 Benign prostatic hyperplasia with lower urinary tract symptoms; R35.0 Frequency of micturition; Z79.84 Long term (current) use of oral hypoglycemic drugs; Z79.899 Other long term (current) drug therapy; Z13.30 Encounter for screening examination for mental health and behavioral disorders, unspecified | CPT/HCPCS: 83036; 96127 ==